=== PATIENT | female | born 1950 | race Caucasian/White ===

== ENCOUNTER 2022-07-03 06:22 | Observation (INO) | payer MEDICARE, OTHER, MEDICAID ==
[2022-07-03] MEDS ORDERED: methylPREDNISolone Sodium Succinate 125 MG/2 ML SDV IVPUSH ONE (06:56)
[2022-07-03] MEDS ORDERED: Ketorolac 30 MG/ML SDV IVPUSH ONE (08:25)
[2022-07-03 10:23] LABS: CARBON DIOXIDE,CO2 24.3 mmol/L (21.0-32.0); POTASSIUM,K 4.5 mmol/L (3.5-5.1)
[2022-07-03] MEDS ORDERED: Ondansetron 4 MG/2 ML SDV IVPUSH PRN (14:13)
[2022-07-03] MEDS ORDERED: Sodium Chloride 0.9% 2.5 ML Syringe FLUSH PRN (14:13)
[2022-07-03] MEDS ORDERED: Sodium Chloride 0.9% 10 ML Syringe FLUSH PRN (14:13)
[2022-07-03] MEDS ORDERED: Lactated Ringers 1,000 ML IV ONE (14:14)
[2022-07-03] MEDS ORDERED: diphenhydrAMINE 25 MG Cap PO PRN (14:15)
[2022-07-03] MEDS ORDERED: 50% Dextrose in Water 50 ML Syringe IVPUSH PRN ×2 (14:18→18:34)
[2022-07-03] MEDS ORDERED: Glucagon,Human Recombinant 1 MG Vial IM PRN ×2 (14:18→18:34)
[2022-07-03] MEDS ORDERED: diphenhydrAMINE 50 MG/ML SDV IVPUSH ONE (14:20)
[2022-07-03] MEDS ORDERED: Acetaminophen 325 MG Tab PO PRN (14:30)
[2022-07-03] MEDS: Loratadine 10 MG Tab PO SCH ×2 (14:59→20:15)
[2022-07-03] MEDS: methylPREDNISolone Sodium Succinate 40 MG/1 ML SDV IVPUSH SCH (15:00)
[2022-07-03] MEDS: Albuterol/Ipratropium 3.0-0.5 MG/3 ML Neb Soln NEB SCH ×2 (15:07→17:45)
[2022-07-03] MEDS ORDERED: EPINEPHrine 1 MG/ML SDV IM ONE (15:09)
[2022-07-03] MEDS ORDERED: EPINEPHrine 1 MG/1 ML Amp IM ONE (15:30)
[2022-07-03] MEDS ORDERED: Insulin Aspart 100 Units/ML 3 ML Pen SUBCUT ONE ×2 (18:34→22:45)
[2022-07-03] MEDS: Insulin Aspart 100 Units/ML 3 ML Pen SUBCUT SCH (18:45)
[2022-07-03] MEDS: Benzonatate 100 MG Cap PO PRN (20:16)
[2022-07-04] MEDS: Albuterol/Ipratropium 3.0-0.5 MG/3 ML Neb Soln NEB SCH ×3 (00:01→11:58)
[2022-07-04] MEDS: methylPREDNISolone Sodium Succinate 40 MG/1 ML SDV IVPUSH SCH (02:27)
[2022-07-04] MEDS: Benzonatate 100 MG Cap PO PRN ×2 (02:27→08:57)
[2022-07-04] MEDS ORDERED: Insulin Aspart 100 Units/ML 3 ML Pen SUBCUT ONE ×2 (02:30→22:45)
[2022-07-04 06:47] LABS: CARBON DIOXIDE,CO2 25.7 mmol/L (21.0-32.0); POTASSIUM,K 4.3 mmol/L (3.5-5.1)
[2022-07-04] MEDS: Insulin Aspart 100 Units/ML 3 ML Pen SUBCUT SCH ×2 (07:38→11:58)
[2022-07-04] MEDS: Loratadine 10 MG Tab PO SCH (08:56)
== END 2022-07-04 14:25 | disposition home or self-care (01) ==
LOC: MW.ED 06:22 → MW.MS 13:50
PROVIDERS: ADMIT Internal Medicine; ATTEND Internal Medicine
DX: T78.3XXA Angioneurotic edema, initial encounter (principal); E78.00 Pure hypercholesterolemia, unspecified; F17.210 Nicotine dependence, cigarettes, uncomplicated; E11.22 Type 2 diabetes mellitus with diabetic chronic kidney disease; I12.9 Hypertensive chronic kidney disease with stage 1 through stage 4 chronic kidney disease, or unspecified chronic kidney disease; N18.9 Chronic kidney disease, unspecified; J45.909 Unspecified asthma, uncomplicated; E86.0 Dehydration; E87.1 Hypo-osmolality and hyponatremia; Z88.8 Allergy status to other drugs, medicaments and biological substances; Z86.711 Personal history of pulmonary embolism; Z98.890 Other specified postprocedural states; Z79.4 Long term (current) use of insulin; Z20.822 Contact with and (suspected) exposure to COVID-19
CPT/HCPCS: 36415; 80048; 80053; 81001; 82436; 82570; 82947; 84133; 84300; 85025; 87086; 87088; 87186; 96372; 96374; 96375; 96376; 99285; A9270; G0378; J0171; J1200; J1815; J1885; J2920; J2930; J7120; U0002; J7620-GY

== ENCOUNTER 2022-11-03 15:14 | Observation (INO) | payer MEDICARE, OTHER, MEDICAID ==
[2022-11-03] MEDS ORDERED: Lactated Ringers 1,000 ML IV SCH (15:45)
[2022-11-03 15:59] LABS: CARBON DIOXIDE,CO2 23.9 mmol/L (21.0-32.0); POTASSIUM,K 5.1 mmol/L (3.5-5.1)
[2022-11-03 16:50] LABS: CORONAVIRUS COVID-19 NAA NEGATIVE (NEGATIVE); INFLUENZA A NAA NEGATIVE (NEGATIVE); INFLUENZA B NAA NEGATIVE (NEGATIVE); RESPIRATORY SYNCYTIAL VIR NAA NEGATIVE (NEGATIVE)
[2022-11-03] MEDS ORDERED: Glucagon,Human Recombinant 1 MG Vial IM PRN (17:36)
[2022-11-03] MEDS ORDERED: 50% Dextrose in Water 50 ML Syringe IVPUSH PRN (17:36)
[2022-11-03] MEDS ORDERED: Acetaminophen 325 MG Tab PO PRN (17:52)
[2022-11-03] MEDS ORDERED: Polyethylene Glycol 3350 Powder 17 GM Packet PO PRN (17:52)
[2022-11-03] MEDS ORDERED: Ondansetron 4 MG/2 ML SDV IVPUSH PRN (17:52)
[2022-11-03] MEDS ORDERED: Albuterol/Ipratropium 3.0-0.5 MG/3 ML Neb Soln NEB PRN (17:52)
[2022-11-03 18:17] LABS: HEMOGLOBIN A1C 7.8 %
[2022-11-03] MEDS: Albuterol/Ipratropium 3.0-0.5 MG/3 ML Neb Soln NEB ONE ×2 (18:33→18:34)
[2022-11-03] MEDS: Lactated Ringers 1,000 ML IV SCH (18:43)
[2022-11-03] MEDS ORDERED: diphenhydrAMINE 25 MG Cap PO PRN (19:01)
[2022-11-03] MEDS: methylPREDNISolone Sodium Succinate 40 MG/1 ML SDV IVPUSH SCH (19:53)
[2022-11-03] MEDS ORDERED: GABAPENTIN 400 MG PO SCH (21:00)
[2022-11-03] MEDS ORDERED: buPROPion 100 MG Tab PO SCH (21:00)
[2022-11-03] MEDS ORDERED: Gabapentin 300 MG Cap PO SCH ×2 (22:00)
[2022-11-03] MEDS: Gabapentin 800 MG Tab PO SCH (22:18)
[2022-11-03] MEDS: Albuterol/Ipratropium 3.0-0.5 MG/3 ML Neb Soln NEB SCH ×2 (22:21)
[2022-11-03] MEDS: cefTRIAXone 1 GM in Sodium Chloride 0.9% 50 ML IV SCH (22:22)
[2022-11-04] MEDS: Albuterol/Ipratropium 3.0-0.5 MG/3 ML Neb Soln NEB SCH ×5 (02:30→21:02)
[2022-11-04] MEDS: Lactated Ringers 1,000 ML IV SCH (02:49)
[2022-11-04] MEDS ORDERED: Albuterol/Ipratropium 3.0-0.5 MG/3 ML Neb Soln NEB ONE (06:00)
[2022-11-04] MEDS: methylPREDNISolone Sodium Succinate 40 MG/1 ML SDV IVPUSH SCH ×2 (06:32→17:34)
[2022-11-04 06:47] LABS: CARBON DIOXIDE,CO2 21.5 mmol/L (21.0-32.0); POTASSIUM,K 5.2 mmol/L (3.5-5.1)
[2022-11-04] MEDS: Insulin Aspart 100 Units/ML 3 ML Pen SUBCUT SCH ×3 (07:48→17:09)
[2022-11-04] MEDS: Gabapentin 300 MG Cap PO SCH ×3 (08:33→17:09)
[2022-11-04] MEDS: Escitalopram 10 MG Tab PO SCH (08:33)
[2022-11-04] MEDS: BUPROPION 100 MG PO SCH ×2 (08:37→20:57)
[2022-11-04] MEDS ORDERED: amLODIPine 5 MG Tab PO SCH (09:00)
[2022-11-04] MEDS ORDERED: Enoxaparin 40 MG/0.4 ML Syringe SUBCUT SCH (09:00)
[2022-11-04] MEDS ORDERED: Non-Formulary Medication 1 Each (Lisinopril 20 MG Tablet) PO SCH (09:00)
[2022-11-04] MEDS: Loratadine 10 MG Tab PO SCH (09:08)
[2022-11-04] MEDS: Fluticasone/Salmeterol 250-50 MCG Inhalation Powder 14/Diskus INH SCH ×2 (09:31→20:54)
[2022-11-04] MEDS: Multivitamin Tab PO SCH (09:33)
[2022-11-04] MEDS: tiZANidine 4 MG Tab PO SCH ×2 (09:33→20:55)
[2022-11-04] MEDS: BUPROPION 200 MG PO SCH ×2 (09:34→20:57)
[2022-11-04] MEDS: amLODIPine 5 MG Tab PO SCH (12:08)
[2022-11-04] MEDS ORDERED: diphenhydrAMINE 25 MG Cap PO PRN (15:34)
[2022-11-04] MEDS: Gabapentin 800 MG Tab PO SCH (20:55)
[2022-11-04] MEDS: cefTRIAXone 1 GM in Sodium Chloride 0.9% 50 ML IV SCH (20:57)
[2022-11-04] MEDS ORDERED: Montelukast 10 MG Tab PO SCH (21:00)
[2022-11-04] MEDS ORDERED: atorvaSTATin 40 MG Tab PO SCH (21:00)
[2022-11-05] MEDS: Albuterol/Ipratropium 3.0-0.5 MG/3 ML Neb Soln NEB SCH ×3 (02:32→11:18)
[2022-11-05 06:20] LABS: CARBON DIOXIDE,CO2 21.9 mmol/L (21.0-32.0); POTASSIUM,K 4.8 mmol/L (3.5-5.1)
[2022-11-05] MEDS: methylPREDNISolone Sodium Succinate 40 MG/1 ML SDV IVPUSH SCH (06:44)
[2022-11-05] MEDS: Insulin Aspart 100 Units/ML 3 ML Pen SUBCUT SCH ×2 (07:58→12:35)
[2022-11-05] MEDS: Multivitamin Tab PO SCH (08:18)
[2022-11-05] MEDS: Escitalopram 10 MG Tab PO SCH (08:18)
[2022-11-05] MEDS: tiZANidine 4 MG Tab PO SCH (08:18)
[2022-11-05] MEDS: Loratadine 10 MG Tab PO SCH (08:18)
[2022-11-05] MEDS: amLODIPine 5 MG Tab PO SCH (08:18)
[2022-11-05] MEDS: Gabapentin 300 MG Cap PO SCH (08:19)
[2022-11-05] MEDS ORDERED: tiZANidine 4 MG Tab PO PRN (08:43)
[2022-11-05] MEDS: Fluticasone/Salmeterol 250-50 MCG Inhalation Powder 14/Diskus INH SCH (09:41)
[2022-11-05] MEDS: BUPROPION 100 MG PO SCH (10:20)
[2022-11-05] MEDS: BUPROPION 200 MG PO SCH (10:20)
[2022-11-05] MEDS ORDERED: Insulin Aspart 100 Units/ML 3 ML Pen SUBCUT ONE (11:21)
[2022-11-05] MEDS ORDERED: Gabapentin 300 MG Cap PO SCH (21:00)
== END 2022-11-05 13:40 | disposition home or self-care (01) ==
LOC: MW.ED 15:14 → MW.MS 17:07 → UNDOADMOB 18:01
PROVIDERS: ADMIT Internal Medicine; ATTEND Internal Medicine
DX: J45.901 Unspecified asthma with (acute) exacerbation (principal); I12.9 Hypertensive chronic kidney disease with stage 1 through stage 4 chronic kidney disease, or unspecified chronic kidney disease; N18.9 Chronic kidney disease, unspecified; E11.22 Type 2 diabetes mellitus with diabetic chronic kidney disease; R42 Dizziness and giddiness; E78.00 Pure hypercholesterolemia, unspecified; F17.210 Nicotine dependence, cigarettes, uncomplicated; E11.40 Type 2 diabetes mellitus with diabetic neuropathy, unspecified; Z86.711 Personal history of pulmonary embolism; Z79.4 Long term (current) use of insulin; Z79.899 Other long term (current) drug therapy; Z88.8 Allergy status to other drugs, medicaments and biological substances; Z91.041 Radiographic dye allergy status; Z98.890 Other specified postprocedural states; Z20.822 Contact with and (suspected) exposure to COVID-19
CPT/HCPCS: 0241U; 36415; 70450; 70551; 71045; 80048; 80053; 80061; 81001; 82607; 82947; 83036; 83735; 84443; 85025; 87086; 93005; 93306; 94640; 96361; 96365; 96372; 96375; 96376; 97161; 97530; 99285; A9270; G0378; J0696; J1650; J1815; J2920; J7120; 93010; 96360; J7050; J7620-GY

== ENCOUNTER 2022-12-29 20:16 | Inpatient (IN) | payer MEDICARE, OTHER, MEDICAID ==
[2022-12-29] MEDS ORDERED: Sodium Chloride 0.9% 10 ML Syringe FLUSH PRN (20:45)
[2022-12-29] MEDS ORDERED: methylPREDNISolone Sodium Succinate 125 MG/2 ML SDV IVPUSH ONE (20:45)
[2022-12-29] MEDS ORDERED: Sodium Chloride 0.9% 2.5 ML Syringe FLUSH PRN (20:45)
[2022-12-29] MEDS ORDERED: cefTRIAXone 2 GM in Premix Bag 1 BAG IV ONE (20:45)
[2022-12-29] MEDS ORDERED: Albuterol 0.083% 2.5 MG/3 ML Neb Soln NEB ONE (20:47)
[2022-12-29 21:03] LABS: CORONAVIRUS COVID-19 NAA NEGATIVE (NEGATIVE); INFLUENZA A NAA NEGATIVE (NEGATIVE); INFLUENZA B NAA NEGATIVE (NEGATIVE); RESPIRATORY SYNCYTIAL VIR NAA NEGATIVE (NEGATIVE)
[2022-12-29] MEDS ORDERED: Nicotine 21 MG/24 Hr Patch TRDERM ONE (21:45)
[2022-12-29 22:12] LABS: CARBON DIOXIDE,CO2 28.2 mmol/L (21.0-32.0); POTASSIUM,K 3.4 mmol/L (3.5-5.1)
[2022-12-29] MEDS ORDERED: Azithromycin 250 MG Tab PO ONE (22:13)
[2022-12-29] MEDS ORDERED: 50% Dextrose in Water 50 ML Syringe IVPUSH PRN (23:56)
[2022-12-29] MEDS ORDERED: Glucagon,Human Recombinant 1 MG Vial IM PRN (23:56)
[2022-12-29] MEDS ORDERED: tiZANidine 4 MG Tab PO PRN (23:56)
[2022-12-30] MEDS ORDERED: Albuterol/Ipratropium 3.0-0.5 MG/3 ML Neb Soln NEB PRN (00:05)
[2022-12-30] MEDS ORDERED: Sodium Chloride 0.9% 1,000 ML IV ONE (01:00)
[2022-12-30] MEDS ORDERED: predniSONE 20 MG Tab PO SCH (08:00)
[2022-12-30] MEDS ORDERED: Insulin Aspart 100 Units/ML 3 ML Pen SUBCUT SCH ×2 (08:00→17:00)
[2022-12-30] MEDS: Lisinopril 10 MG Tab PO SCH (08:00)
[2022-12-30] MEDS: Gabapentin 300 MG Cap PO SCH ×2 (08:00→20:31)
[2022-12-30] MEDS: Multivitamin Tab PO SCH (08:01)
[2022-12-30] MEDS: Calcium Carbonate 500 MG Tablet PO SCH (08:01)
[2022-12-30] MEDS: amLODIPine 5 MG Tab PO SCH (08:01)
[2022-12-30] MEDS: Fluticasone/Salmeterol 250-50 MCG Inhalation Powder 14/Diskus INH SCH ×2 (08:01→20:33)
[2022-12-30] MEDS: BUPROPION 200 MG PO SCH ×2 (08:05→20:55)
[2022-12-30] MEDS ORDERED: glipiZIDE 5 MG Tab PO SCH (09:00)
[2022-12-30 09:34] LABS: CARBON DIOXIDE,CO2 23.9 mmol/L (21.0-32.0); POTASSIUM,K 4.4 mmol/L (3.5-5.1)
[2022-12-30] MEDS ORDERED: methylPREDNISolone Sodium Succinate 40 MG/1 ML SDV IVPUSH SCH (11:00)
[2022-12-30] MEDS ORDERED: Albuterol/Ipratropium 3.0-0.5 MG/3 ML Neb Soln ONE (11:19)
[2022-12-30] MEDS: Albuterol/Ipratropium 3.0-0.5 MG/3 ML Neb Soln NEB SCH ×3 (11:25→21:30)
[2022-12-30] MEDS ORDERED: 50% Dextrose in Water 50 ML Syringe IVPUSH PRN ×3 (11:34→16:49)
[2022-12-30] MEDS ORDERED: Glucagon,Human Recombinant 1 MG Vial IM PRN ×3 (11:34→16:49)
[2022-12-30] MEDS ORDERED: Insulin Aspart 100 Units/ML 3 ML Pen SUBCUT ONE (11:35)
[2022-12-30] MEDS ORDERED: Magnesium Sulfate/Water 4 GM in Premix Bag 1 BAG IV ONE (13:01)
[2022-12-30] MEDS: Loratadine 10 MG Tab PO SCH (13:35)
[2022-12-30] MEDS: methylPREDNISolone Sodium Succinate 125 MG/2 ML SDV IVPUSH SCH ×2 (13:36→20:32)
[2022-12-30] MEDS: Heparin Sodium 5,000 Units/ML Vial SUBCUT SCH (13:36)
[2022-12-30] MEDS: Insulin Aspart 100 Units/ML 3 ML Pen SUBCUT SCH ×2 (16:56)
[2022-12-30] MEDS: Nicotine 21 MG/24 Hr Patch TRDERM SCH (20:29)
[2022-12-30] MEDS: glipiZIDE 5 MG Tab PO SCH (20:30)
[2022-12-30] MEDS: Simvastatin 40 MG Tab PO SCH (20:30)
[2022-12-30] MEDS: Montelukast 10 MG Tab PO SCH (20:31)
[2022-12-30] MEDS: cefTRIAXone 1 GM in Sodium Chloride 0.9% 50 ML IV SCH (20:32)
[2022-12-30] MEDS: Insulin Glargine,Hum.Rec.Anlog 100 UNIT/ML 3 ML Pen SUBCUT SCH (20:33)
[2022-12-30] MEDS: Azithromycin 250 MG Tab PO SCH (21:30)
[2022-12-30] MEDS ORDERED: buPROPion 150 MG Tab.SR PO ONE (22:45)
[2022-12-31] MEDS: Heparin Sodium 5,000 Units/ML Vial SUBCUT SCH ×3 (01:39→23:55)
[2022-12-31] MEDS: methylPREDNISolone Sodium Succinate 125 MG/2 ML SDV IVPUSH SCH ×4 (01:39→20:31)
[2022-12-31] MEDS: diphenhydrAMINE 25 MG Cap PO PRN ×2 (01:41→23:56)
[2022-12-31 06:47] LABS: CARBON DIOXIDE,CO2 22.3 mmol/L (21.0-32.0); POTASSIUM,K 4.4 mmol/L (3.5-5.1)
[2022-12-31] MEDS: Albuterol/Ipratropium 3.0-0.5 MG/3 ML Neb Soln NEB SCH ×3 (06:54→22:43)
[2022-12-31] MEDS: Insulin Aspart 100 Units/ML 3 ML Pen SUBCUT SCH ×6 (07:58→17:10)
[2022-12-31] MEDS ORDERED: Sodium Chloride 0.9% 1,000 ML IV ONE (07:59)
[2022-12-31] MEDS: Lisinopril 10 MG Tab PO SCH (08:39)
[2022-12-31] MEDS: Loratadine 10 MG Tab PO SCH (08:40)
[2022-12-31] MEDS: Multivitamin Tab PO SCH (08:40)
[2022-12-31] MEDS: Calcium Carbonate 500 MG Tablet PO SCH (08:40)
[2022-12-31] MEDS: amLODIPine 5 MG Tab PO SCH (08:41)
[2022-12-31] MEDS: glipiZIDE 5 MG Tab PO SCH ×2 (08:41→20:32)
[2022-12-31] MEDS: Nicotine 21 MG/24 Hr Patch TRDERM SCH (08:42)
[2022-12-31] MEDS: Gabapentin 300 MG Cap PO SCH ×2 (08:42→20:31)
[2022-12-31] MEDS: Fluticasone/Salmeterol 250-50 MCG Inhalation Powder 14/Diskus INH SCH ×2 (08:43→20:35)
[2022-12-31] MEDS: BUPROPION 200 MG PO SCH (08:45)
[2022-12-31] MEDS: Acetaminophen 325 MG Tab PO PRN ×3 (09:22→23:56)
[2022-12-31] MEDS: guaiFENesin 600 MG Tab.ER PO SCH ×2 (10:23→20:33)
[2022-12-31] MEDS: Famotidine 20 MG Tab PO SCH (10:24)
[2022-12-31] MEDS: buPROPion 150 MG Tab.SR PO SCH (10:24)
[2022-12-31] MEDS: cefTRIAXone 1 GM in Sodium Chloride 0.9% 50 ML IV SCH (20:31)
[2022-12-31] MEDS: Simvastatin 40 MG Tab PO SCH (20:32)
[2022-12-31] MEDS: Montelukast 10 MG Tab PO SCH (20:32)
[2022-12-31] MEDS: Insulin Glargine,Hum.Rec.Anlog 100 UNIT/ML 3 ML Pen SUBCUT SCH (20:35)
[2022-12-31] MEDS: Azithromycin 250 MG Tab PO SCH (22:43)
[2023-01-01] MEDS: methylPREDNISolone Sodium Succinate 125 MG/2 ML SDV IVPUSH SCH ×3 (02:10→15:28)
[2023-01-01 06:47] LABS: CARBON DIOXIDE,CO2 22.6 mmol/L (21.0-32.0); POTASSIUM,K 4.1 mmol/L (3.5-5.1)
[2023-01-01] MEDS: Albuterol/Ipratropium 3.0-0.5 MG/3 ML Neb Soln NEB SCH ×3 (07:32→21:16)
[2023-01-01 08:09] LABS: BORDETELLA PARAPERT IS1001 Not Detected (Not Detected)
[2023-01-01] MEDS: Acetaminophen 325 MG Tab PO PRN (08:26)
[2023-01-01] MEDS: Insulin Aspart 100 Units/ML 3 ML Pen SUBCUT SCH ×6 (08:30→17:04)
[2023-01-01] MEDS: Fluticasone/Salmeterol 250-50 MCG Inhalation Powder 14/Diskus INH SCH ×2 (10:22→21:16)
[2023-01-01] MEDS: Nicotine 21 MG/24 Hr Patch TRDERM SCH (10:22)
[2023-01-01] MEDS: glipiZIDE 5 MG Tab PO SCH ×2 (10:25→21:14)
[2023-01-01] MEDS: guaiFENesin 600 MG Tab.ER PO SCH ×2 (10:25→21:15)
[2023-01-01] MEDS: buPROPion 150 MG Tab.SR PO SCH (10:26)
[2023-01-01] MEDS: Gabapentin 300 MG Cap PO SCH ×2 (10:27→21:15)
[2023-01-01] MEDS: Lisinopril 10 MG Tab PO SCH (10:28)
[2023-01-01] MEDS: Calcium Carbonate 500 MG Tablet PO SCH (10:29)
[2023-01-01] MEDS: amLODIPine 5 MG Tab PO SCH (10:31)
[2023-01-01] MEDS: Loratadine 10 MG Tab PO SCH (10:32)
[2023-01-01] MEDS: Famotidine 20 MG Tab PO SCH (10:33)
[2023-01-01] MEDS: Multivitamin Tab PO SCH (10:34)
[2023-01-01] MEDS: Heparin Sodium 5,000 Units/ML Vial SUBCUT SCH (12:08)
[2023-01-01] MEDS: Montelukast 10 MG Tab PO SCH (21:14)
[2023-01-01] MEDS: Insulin Glargine,Hum.Rec.Anlog 100 UNIT/ML 3 ML Pen SUBCUT SCH (21:15)
[2023-01-01] MEDS: cefTRIAXone 1 GM in Sodium Chloride 0.9% 50 ML IV SCH (21:15)
[2023-01-01] MEDS: Azithromycin 250 MG Tab PO SCH (21:15)
[2023-01-01] MEDS: Simvastatin 40 MG Tab PO SCH (21:15)
[2023-01-01] MEDS: diphenhydrAMINE 25 MG Cap PO PRN (21:15)
[2023-01-02] MEDS: methylPREDNISolone Sodium Succinate 125 MG/2 ML SDV IVPUSH SCH ×2 (01:15→13:15)
[2023-01-02] MEDS: Heparin Sodium 5,000 Units/ML Vial SUBCUT SCH ×2 (01:17→13:15)
[2023-01-02 07:15] LABS: CARBON DIOXIDE,CO2 25.3 mmol/L (21.0-32.0); POTASSIUM,K 4.9 mmol/L (3.5-5.1)
[2023-01-02] MEDS: Acetaminophen 325 MG Tab PO PRN ×3 (07:32→21:04)
[2023-01-02] MEDS: Albuterol/Ipratropium 3.0-0.5 MG/3 ML Neb Soln NEB SCH ×3 (07:32→21:06)
[2023-01-02] MEDS: Insulin Aspart 100 Units/ML 3 ML Pen SUBCUT SCH ×6 (07:33→16:38)
[2023-01-02] MEDS ORDERED: Albuterol/Ipratropium 3.0-0.5 MG/3 ML Neb Soln NEB PRN (08:25)
[2023-01-02] MEDS: buPROPion 150 MG Tab.SR PO SCH (08:29)
[2023-01-02] MEDS: Calcium Carbonate 500 MG Tablet PO SCH (08:29)
[2023-01-02] MEDS: Loratadine 10 MG Tab PO SCH (08:29)
[2023-01-02] MEDS: amLODIPine 5 MG Tab PO SCH (08:29)
[2023-01-02] MEDS: Multivitamin Tab PO SCH (08:29)
[2023-01-02] MEDS: Gabapentin 300 MG Cap PO SCH ×2 (08:29→21:07)
[2023-01-02] MEDS: Lisinopril 10 MG Tab PO SCH (08:29)
[2023-01-02] MEDS: Nicotine 21 MG/24 Hr Patch TRDERM SCH (08:30)
[2023-01-02] MEDS: Famotidine 20 MG Tab PO SCH (08:30)
[2023-01-02] MEDS: guaiFENesin 600 MG Tab.ER PO SCH ×2 (08:30→21:07)
[2023-01-02] MEDS: glipiZIDE 5 MG Tab PO SCH ×2 (08:30→21:05)
[2023-01-02] MEDS: Fluticasone/Salmeterol 250-50 MCG Inhalation Powder 14/Diskus INH SCH ×2 (08:31→21:10)
[2023-01-02] MEDS: Montelukast 10 MG Tab PO SCH (21:06)
[2023-01-02] MEDS: Simvastatin 40 MG Tab PO SCH (21:07)
[2023-01-02] MEDS: Azithromycin 250 MG Tab PO SCH (21:08)
[2023-01-02] MEDS: Insulin Glargine,Hum.Rec.Anlog 100 UNIT/ML 3 ML Pen SUBCUT SCH (21:09)
[2023-01-02] MEDS: cefTRIAXone 1 GM in Sodium Chloride 0.9% 50 ML IV SCH (21:09)
[2023-01-03] MEDS: methylPREDNISolone Sodium Succinate 125 MG/2 ML SDV IVPUSH SCH (01:33)
[2023-01-03] MEDS: Heparin Sodium 5,000 Units/ML Vial SUBCUT SCH ×2 (01:34→12:16)
[2023-01-03 06:24] LABS: CARBON DIOXIDE,CO2 23.7 mmol/L (21.0-32.0); POTASSIUM,K 4.8 mmol/L (3.5-5.1)
[2023-01-03] MEDS: Albuterol/Ipratropium 3.0-0.5 MG/3 ML Neb Soln NEB SCH (07:32)
[2023-01-03] MEDS ORDERED: cloNIDine 0.1 MG Tab PO PRN (07:37)
[2023-01-03] MEDS: Insulin Aspart 100 Units/ML 3 ML Pen SUBCUT SCH ×4 (08:50→12:16)
[2023-01-03] MEDS: amLODIPine 5 MG Tab PO SCH (08:52)
[2023-01-03] MEDS: Gabapentin 300 MG Cap PO SCH (08:52)
[2023-01-03] MEDS: Lisinopril 10 MG Tab PO SCH (08:52)
[2023-01-03] MEDS: glipiZIDE 5 MG Tab PO SCH (08:53)
[2023-01-03] MEDS: Loratadine 10 MG Tab PO SCH (08:53)
[2023-01-03] MEDS: guaiFENesin 600 MG Tab.ER PO SCH (08:53)
[2023-01-03] MEDS: Famotidine 20 MG Tab PO SCH (08:53)
[2023-01-03] MEDS: buPROPion 150 MG Tab.SR PO SCH (08:53)
[2023-01-03] MEDS: Multivitamin Tab PO SCH (08:53)
[2023-01-03] MEDS: Calcium Carbonate 500 MG Tablet PO SCH (08:53)
[2023-01-03] MEDS: Nicotine 21 MG/24 Hr Patch TRDERM SCH (08:54)
[2023-01-03] MEDS: Fluticasone/Salmeterol 250-50 MCG Inhalation Powder 14/Diskus INH SCH (09:33)
== END 2023-01-03 13:55 | disposition home or self-care (01) | DRG 193 ==
LOC: MW.ED 20:16 → INTOOBSV 22:14 → UNDOADMOB 22:14 → OBSVTOIN 22:14 → MW.MS 22:14 → OBSVTOIN 12-31 09:38 → MW.MS 12-31 09:38 → UNDODISIN 01-03 13:55
PROVIDERS: ADMIT Internal Medicine; ATTEND Internal Medicine
DX: J18.9 Pneumonia, unspecified organism (principal); J96.01 Acute respiratory failure with hypoxia; J44.0 Chronic obstructive pulmonary disease with (acute) lower respiratory infection; J44.1 Chronic obstructive pulmonary disease with (acute) exacerbation; J45.901 Unspecified asthma with (acute) exacerbation; Z68.41 Body mass index [BMI] 40.0-44.9, adult; E66.9 Obesity, unspecified; F32.89 Other specified depressive episodes; I12.9 Hypertensive chronic kidney disease with stage 1 through stage 4 chronic kidney disease, or unspecified chronic kidney disease; N18.2 Chronic kidney disease, stage 2 (mild); E11.22 Type 2 diabetes mellitus with diabetic chronic kidney disease; M19.90 Unspecified osteoarthritis, unspecified site; G47.30 Sleep apnea, unspecified; Z20.822 Contact with and (suspected) exposure to COVID-19; M54.9 Dorsalgia, unspecified; E11.65 Type 2 diabetes mellitus with hyperglycemia; E11.9 Type 2 diabetes mellitus without complications; G89.29 Other chronic pain; G43.909 Migraine, unspecified, not intractable, without status migrainosus; E11.42 Type 2 diabetes mellitus with diabetic polyneuropathy; F41.0 Panic disorder [episodic paroxysmal anxiety]; F17.210 Nicotine dependence, cigarettes, uncomplicated; F41.9 Anxiety disorder, unspecified; D63.1 Anemia in chronic kidney disease; E78.00 Pure hypercholesterolemia, unspecified; I10 Essential (primary) hypertension; Z79.51 Long term (current) use of inhaled steroids; Z98.890 Other specified postprocedural states; Z88.8 Allergy status to other drugs, medicaments and biological substances; Z91.041 Radiographic dye allergy status; Z86.711 Personal history of pulmonary embolism; Z79.4 Long term (current) use of insulin; Z79.899 Other long term (current) drug therapy; Z86.718 Personal history of other venous thrombosis and embolism
CPT/HCPCS: 0241U; 36415; 71045; 71045-26; 80048; 80053; 82947; 83605; 83735; 83880; 84100; 84484; 85025; 85027; 85610; 87040; 87486; 87581; 87633; 87798; 93005; 93010; 94640; 96361; 96365; 96366; 96367; 96372; 96375; 96376; 99285; 99285-25; A9270-GY; G0378; J0696; J1644; J1815-GY; J2930; J3475; J3490; J7030; J7050; J7620-GY

== ENCOUNTER 2023-07-21 15:30 | Observation (INO) | payer MEDICARE, OTHER, MEDICAID ==
[2023-07-21 16:29] LABS: BASOPHILS ABSOLUTE AUTO 0.1 K/uL (0.0-0.1); BASOPHILS PERCENT AUTO 0.5 % (0.0-1.5); EOSINOPHILS ABSOLUTE AUTO 0.3 K/uL (0.0-0.7); EOSINOPHILS PERCENT AUTO 2.7 % (0.0-7.0); HEMATOCRIT 38.4 % (36.0-46.0); HEMOGLOBIN 12.7 g/dL (12.0-16.0); LYMPHOCYTES ABSOLUTE AUTO 2.2 K/uL (0.6-2.4); LYMPHOCYTES PERCENT AUTO 22.7 % (16.0-40.0); MEAN CORPUSCULAR HEMOGLOBIN 30.5 pg (27.0-32.0); MEAN CORPUSCULAR HGB CONC 33.1 g/dL (31.0-37.0); MEAN CORPUSCULAR VOLUME 92.1 fL (80.0-98.0); MONOCYTES ABSOLUTE AUTO 0.9 K/uL (0.0-0.8); MONOCYTES PERCENT AUTO 9.2 % (0.0-15.0); NEUTROPHILS ABSOLUTE AUTO 6.2 K/uL (1.4-5.7); NEUTROPHILS PERCENT AUTO 64.9 % (48.0-80.0); NRBC ABSOLUTE 0 K/uL; PLATELET COUNT,PLT 386 K/uL (150-400); RED BLOOD CELL COUNT 4.17 M/uL (4.30-5.90); WHITE BLOOD CELL COUNT,WBC 9.49 K/uL (4.0-11.0)
[2023-07-21 16:40] LABS: INR 0.94 (0.86-1.11)
[2023-07-21 16:59] LABS: A/G RATIO 0.9 (0.9-1.6); ALBUMIN 2.9 g/dL (3.4-5.0); BILIRUBIN TOTAL 0.2 mg/dL (0.2-1.0); CALCIUM 8.3 mg/dL (8.5-10.1); CARBON DIOXIDE,CO2 24.4 mmol/L (21.0-32.0); CREATININE 1.9 mg/dL (0.6-1.0); EST CRCL DRUG DOSING (CG) 19.22 mL/min; POTASSIUM,K 4.5 mmol/L (3.5-5.1); PROTEIN TOTAL,TP 6.1 g/dL (6.4-8.2)
[2023-07-21 17:18] LABS: MAGNESIUM 2.1 mg/dL (1.8-2.4)
[2023-07-21 17:27] LABS: APPEARANCE,URINE CLEAR; BILIRUBIN,URINE NEGATIVE (NEGATIVE); COLOR,URINE YELLOW; GLUCOSE,URINE NEGATIVE (NEGATIVE); KETONES,URINE NEGATIVE (NEGATIVE); LEUKOCYTE ESTERASE,URINE TRACE (NEGATIVE); NITRITE,URINE NEGATIVE (NEGATIVE); OCCULT BLOOD,URINE NEGATIVE (NEGATIVE); PROTEIN,URINE 100 mg/dL (NEGATIVE); UROBILINOGEN,URINE 0.2 EU/dL (<2.0)
[2023-07-21 17:39] LABS: BACTERIA,URINE MODERATE (NEGATIVE); EPITHELIAL CELLS,URINE MANY (NONE-FEW); RBC,URINE 0-1 (0-2/HPF)
[2023-07-21] MEDS ORDERED: cefTRIAXone 1 GM in Sodium Chloride 0.9% 50 ML IV ONE (18:48)
[2023-07-21] MEDS ORDERED: Glucagon,Human Recombinant 1 MG Vial IM PRN (21:24)
[2023-07-21] MEDS ORDERED: 50% Dextrose in Water 50 ML Syringe IVPUSH PRN (21:24)
[2023-07-22] MEDS: diphenhydrAMINE 25 MG Cap PO PRN ×3 (02:14→21:42)
[2023-07-22] MEDS ORDERED: Acetaminophen 325 MG Tab PO PRN (07:52)
[2023-07-22] MEDS ORDERED: Sodium Chloride 0.9% 2.5 ML Syringe FLUSH PRN (07:52)
[2023-07-22] MEDS ORDERED: Ondansetron 4 MG/2 ML SDV IVPUSH PRN (07:52)
[2023-07-22] MEDS ORDERED: Sodium Chloride 0.9% 10 ML Syringe FLUSH PRN (07:52)
[2023-07-22] MEDS ORDERED: Albuterol/Ipratropium 3.0-0.5 MG/3 ML Neb Soln NEB PRN (07:52)
[2023-07-22] MEDS: Insulin Aspart 100 Units/ML 3 ML Pen SUBCUT SCH ×3 (08:09→17:23)
[2023-07-22 08:21] LABS: BASOPHILS ABSOLUTE AUTO 0.1 K/uL (0.0-0.1); BASOPHILS PERCENT AUTO 0.5 % (0.0-1.5); EOSINOPHILS ABSOLUTE AUTO 0.3 K/uL (0.0-0.7); EOSINOPHILS PERCENT AUTO 2.7 % (0.0-7.0); HEMATOCRIT 39.6 % (36.0-46.0); HEMOGLOBIN 13.3 g/dL (12.0-16.0); LYMPHOCYTES ABSOLUTE AUTO 2.8 K/uL (0.6-2.4); LYMPHOCYTES PERCENT AUTO 29.6 % (16.0-40.0); MEAN CORPUSCULAR HEMOGLOBIN 30.8 pg (27.0-32.0); MEAN CORPUSCULAR HGB CONC 33.6 g/dL (31.0-37.0); MEAN CORPUSCULAR VOLUME 91.7 fL (80.0-98.0); MONOCYTES ABSOLUTE AUTO 0.9 K/uL (0.0-0.8); MONOCYTES PERCENT AUTO 8.9 % (0.0-15.0); NEUTROPHILS ABSOLUTE AUTO 5.6 K/uL (1.4-5.7); NEUTROPHILS PERCENT AUTO 58.3 % (48.0-80.0); NRBC ABSOLUTE 0 K/uL; PLATELET COUNT,PLT 377 K/uL (150-400); RED BLOOD CELL COUNT 4.32 M/uL (4.30-5.90); WHITE BLOOD CELL COUNT,WBC 9.57 K/uL (4.0-11.0)
[2023-07-22 08:38] LABS: CALCIUM 8.7 mg/dL (8.5-10.1); CARBON DIOXIDE,CO2 27.1 mmol/L (21.0-32.0); CREATININE 1.7 mg/dL (0.6-1.0); EST CRCL DRUG DOSING (CG) 21.49 mL/min; POTASSIUM,K 4.3 mmol/L (3.5-5.1)
[2023-07-22] MEDS ORDERED: BUPROPION HCL 200 MG PO SCH (09:00)
[2023-07-22] MEDS: Famotidine 20 MG Tab PO SCH (10:30)
[2023-07-22] MEDS: Multivitamins with Iron/Calcium/Folic Acid/Minerals Tab PO SCH (10:30)
[2023-07-22] MEDS: Escitalopram 10 MG Tab PO SCH (10:31)
[2023-07-22] MEDS: buPROPion 150 MG Tab.SR PO SCH ×2 (10:32→20:26)
[2023-07-22] MEDS: Metoclopramide 5 MG Tab PO SCH ×3 (10:34→17:16)
[2023-07-22] MEDS: Formoterol/Mometasone 200-5 MCG 8.8 GM Inhaler INH SCH ×2 (10:34→20:27)
[2023-07-22] MEDS: Nicotine 21 MG/24 Hr Patch TRDERM SCH (12:04)
[2023-07-22] MEDS: Sodium Chloride 0.9% 1,000 ML IV SCH ×2 (12:49→23:14)
[2023-07-22] MEDS ORDERED: cefTRIAXone 1 GM in Sodium Chloride 0.9% 50 ML IV SCH (16:00)
[2023-07-22] MEDS ORDERED: Montelukast 10 MG Tab PO SCH (21:00)
[2023-07-22] MEDS ORDERED: Simvastatin 10 MG Tab PO SCH (21:00)
[2023-07-23 05:47] LABS: BASOPHILS ABSOLUTE AUTO 0.1 K/uL (0.0-0.1); BASOPHILS PERCENT AUTO 0.7 % (0.0-1.5); EOSINOPHILS ABSOLUTE AUTO 0.3 K/uL (0.0-0.7); EOSINOPHILS PERCENT AUTO 2.9 % (0.0-7.0); HEMATOCRIT 38.1 % (36.0-46.0); HEMOGLOBIN 12.8 g/dL (12.0-16.0); LYMPHOCYTES ABSOLUTE AUTO 1.9 K/uL (0.6-2.4); LYMPHOCYTES PERCENT AUTO 22.5 % (16.0-40.0); MEAN CORPUSCULAR HEMOGLOBIN 30.5 pg (27.0-32.0); MEAN CORPUSCULAR HGB CONC 33.6 g/dL (31.0-37.0); MEAN CORPUSCULAR VOLUME 90.7 fL (80.0-98.0); MONOCYTES ABSOLUTE AUTO 0.9 K/uL (0.0-0.8); NEUTROPHILS ABSOLUTE AUTO 5.5 K/uL (1.4-5.7); NEUTROPHILS PERCENT AUTO 63.9 % (48.0-80.0); NRBC ABSOLUTE 0 K/uL; PLATELET COUNT,PLT 377 K/uL (150-400); WHITE BLOOD CELL COUNT,WBC 8.54 K/uL (4.0-11.0)
[2023-07-23 06:05] LABS: CALCIUM 8.2 mg/dL (8.5-10.1); CARBON DIOXIDE,CO2 25.2 mmol/L (21.0-32.0); CREATININE 1.6 mg/dL (0.6-1.0); EST CRCL DRUG DOSING (CG) 22.83 mL/min
[2023-07-23] MEDS: Metoclopramide 5 MG Tab PO SCH ×2 (06:05→06:39)
[2023-07-23] MEDS: Insulin Aspart 100 Units/ML 3 ML Pen SUBCUT SCH (07:53)
[2023-07-23] MEDS: Multivitamins with Iron/Calcium/Folic Acid/Minerals Tab PO SCH (08:44)
[2023-07-23] MEDS: Famotidine 20 MG Tab PO SCH (08:45)
[2023-07-23] MEDS: buPROPion 150 MG Tab.SR PO SCH (08:45)
[2023-07-23] MEDS: Escitalopram 10 MG Tab PO SCH (08:45)
[2023-07-23] MEDS: Nicotine 21 MG/24 Hr Patch TRDERM SCH (08:46)
[2023-07-23] MEDS: Formoterol/Mometasone 200-5 MCG 8.8 GM Inhaler INH SCH (10:17)
[2023-07-23] MEDS ORDERED: Metoclopramide 5 MG Tab PO SCH (17:00)
== END 2023-07-23 11:33 | disposition home or self-care (01) ==
LOC: MW.ED 15:30 → MW.MS 18:35
PROVIDERS: ADMIT Internal Medicine; ATTEND Internal Medicine
DX: I95.1 Orthostatic hypotension (principal); G93.41 Metabolic encephalopathy; E11.649 Type 2 diabetes mellitus with hypoglycemia without coma; N30.00 Acute cystitis without hematuria; N17.9 Acute kidney failure, unspecified; I12.9 Hypertensive chronic kidney disease with stage 1 through stage 4 chronic kidney disease, or unspecified chronic kidney disease; E11.22 Type 2 diabetes mellitus with diabetic chronic kidney disease; N18.2 Chronic kidney disease, stage 2 (mild); E11.43 Type 2 diabetes mellitus with diabetic autonomic (poly)neuropathy; K31.84 Gastroparesis; J44.9 Chronic obstructive pulmonary disease, unspecified; G47.30 Sleep apnea, unspecified; E11.42 Type 2 diabetes mellitus with diabetic polyneuropathy; F41.0 Panic disorder [episodic paroxysmal anxiety]; F32.A Depression, unspecified; E78.5 Hyperlipidemia, unspecified; F17.210 Nicotine dependence, cigarettes, uncomplicated; Z86.711 Personal history of pulmonary embolism; Z79.2 Long term (current) use of antibiotics; Z88.8 Allergy status to other drugs, medicaments and biological substances; Z79.899 Other long term (current) drug therapy; Z79.84 Long term (current) use of oral hypoglycemic drugs; Z79.85 Long-term (current) use of injectable non-insulin antidiabetic drugs; W19.XXXA Unspecified fall, initial encounter
CPT/HCPCS: 36415; 70450; 71045; 72125; 80048; 80053; 81001; 82947; 83735; 84484; 85025; 85610; 87086; 93005; 96361; 96365; 96366; 97162; 99285; A9270; G0378; J0696; J1815; J3490; J7030; 93010; 99282

== ENCOUNTER 2023-09-08 11:45 | Inpatient (IN) | payer MEDICARE, OTHER, MEDICAID ==
[2023-09-08] MEDS ORDERED: Sodium Chloride 0.9% 2.5 ML Syringe FLUSH PRN (11:48)
[2023-09-08] MEDS ORDERED: Sodium Chloride 0.9% 10 ML Syringe FLUSH PRN (11:48)
[2023-09-08] MEDS ORDERED: Ondansetron 4 MG/2 ML SDV IVPUSH ONE (12:00)
[2023-09-08] MEDS ORDERED: Sodium Chloride 0.9% 1,000 ML IV ONE ×2 (12:06→12:15)
[2023-09-08 12:15] LABS: BASE EXCESS VENOUS -0.9 (-2.0-3.0); PH,VENOUS 7.49 (7.31-7.41)
[2023-09-08 12:48] LABS: ALBUMIN 4.3 g/dL (3.4-5.0); BILIRUBIN TOTAL 0.4 mg/dL (0.2-1.0); CALCIUM 10.2 mg/dL (8.5-10.1); CREATININE 1.6 mg/dL (0.6-1.0); EST CRCL DRUG DOSING (CG) 22.83 mL/min; POTASSIUM,K 3.7 mmol/L (3.5-5.1); PROTEIN TOTAL,TP 8.4 g/dL (6.4-8.2)
[2023-09-08 12:49] LABS: A/G RATIO 1.1 (0.9-1.6)
[2023-09-08 13:23] LABS: CORONAVIRUS COVID-19 NAA NEGATIVE (NEGATIVE); INFLUENZA A NAA NEGATIVE (NEGATIVE); INFLUENZA B NAA NEGATIVE (NEGATIVE)
[2023-09-08 13:34] LABS: BASOPHILS ABSOLUTE AUTO 0.07 K/uL (0.00-0.20); BASOPHILS PERCENT AUTO 0.5 % (0.0-1.0); EOSINOPHILS ABSOLUTE AUTO 0.01 K/uL (0.00-0.45); EOSINOPHILS PERCENT AUTO 0.1 % (0.0-6.0); HEMATOCRIT 47.3 % (37.0-47.0); HEMOGLOBIN 16.7 g/dL (12.0-16.0); IMMATURE GRAN ABSOLUTE AUTO 0.07 K/uL (0.00-0.05); IMMATURE GRAN PERCENT AUTO 0.5 % (0.0-0.4); LYMPHOCYTES ABSOLUTE AUTO 0.73 K/uL (1.00-4.80); LYMPHOCYTES PERCENT AUTO 5.6 % (24.0-44.0); MEAN CORPUSCULAR HEMOGLOBIN 31.3 pg (28.0-32.0); MEAN CORPUSCULAR HGB CONC 35.3 g/dL (32.0-36.0); MEAN CORPUSCULAR VOLUME 88.6 fL (83.0-99.0); MEAN PLATELET VOLUME 8.4 fL (9.4-12.3); MONOCYTES ABSOLUTE AUTO 0.38 K/uL (0.00-0.80); MONOCYTES PERCENT AUTO 2.9 % (0.0-8.0); NEUTROPHILS ABSOLUTE AUTO 11.69 K/uL (1.80-7.70); NEUTROPHILS PERCENT AUTO 90.4 % (41.0-71.0); PLATELET COUNT,PLT 333 K/uL (150-400); RED BLOOD CELL COUNT 5.34 M/uL (4.10-5.30); WHITE BLOOD CELL COUNT,WBC 12.95 K/uL (3.9-11.3)
[2023-09-08] MEDS ORDERED: Morphine 4 MG/ML Syringe IVPUSH ONE (13:47)
[2023-09-08] MEDS ORDERED: HYDROmorphone 1 MG/ML Syringe IVPUSH ONE (16:33)
[2023-09-08] MEDS ORDERED: Alum Hydro/Mag Hydro/Simeth XS 15 ML, Lidocaine 2% 5 ML PO ONE ×2 (16:34)
[2023-09-08] MEDS ORDERED: 50% Dextrose in Water 50 ML Syringe IVPUSH PRN ×2 (17:07→17:49)
[2023-09-08] MEDS ORDERED: Insulin Regular, Human 100 Units/ML 10 ML Vial IVPUSH ONE (17:07)
[2023-09-08] MEDS ORDERED: Glucagon,Human Recombinant 1 MG Vial IM PRN ×2 (17:07→17:49)
[2023-09-08 17:10] LABS: APPEARANCE,URINE CLEAR; BILIRUBIN,URINE NEGATIVE (NEGATIVE); COLOR,URINE YELLOW; GLUCOSE,URINE >=1000 mg/dL (NEGATIVE); KETONES,URINE 15 mg/dL (NEGATIVE); LEUKOCYTE ESTERASE,URINE NEGATIVE (NEGATIVE); NITRITE,URINE NEGATIVE (NEGATIVE); OCCULT BLOOD,URINE SMALL (NEGATIVE); PROTEIN,URINE >=300 mg/dL (NEGATIVE); UROBILINOGEN,URINE 0.2 EU/dL (<2.0)
[2023-09-08 17:21] LABS: BACTERIA,URINE NOT SEEN (NEGATIVE); EPITHELIAL CELLS,URINE NOT SEEN (NONE-FEW); RBC,URINE 0-3 (0-2/HPF); WBC,URINE 0-2 (0-5/HPF)
[2023-09-08] MEDS ORDERED: Naloxone 0.4 MG/ML SDV IVPUSH PRN (17:49)
[2023-09-08] MEDS ORDERED: Ondansetron 4 MG/2 ML SDV IVPUSH PRN (18:11)
[2023-09-08] MEDS: Simvastatin 10 MG Tab PO SCH (20:15)
[2023-09-08] MEDS: Lactated Ringers 1,000 ML IV SCH (20:15)
[2023-09-08] MEDS: Enoxaparin 40 MG/0.4 ML Syringe SUBCUT SCH (20:16)
[2023-09-09] MEDS: Lactated Ringers 1,000 ML IV SCH ×2 (05:40→16:00)
[2023-09-09 06:44] LABS: BASOPHILS ABSOLUTE AUTO 0.05 K/uL (0.00-0.20); BASOPHILS PERCENT AUTO 0.4 % (0.0-1.0); EOSINOPHILS ABSOLUTE AUTO 0.02 K/uL (0.00-0.45); EOSINOPHILS PERCENT AUTO 0.2 % (0.0-6.0); HEMATOCRIT 40.6 % (37.0-47.0); HEMOGLOBIN 13.9 g/dL (12.0-16.0); IMMATURE GRAN ABSOLUTE AUTO 0.05 K/uL (0.00-0.05); IMMATURE GRAN PERCENT AUTO 0.4 % (0.0-0.4); LYMPHOCYTES ABSOLUTE AUTO 1.96 K/uL (1.00-4.80); LYMPHOCYTES PERCENT AUTO 15.3 % (24.0-44.0); MEAN CORPUSCULAR HEMOGLOBIN 30.1 pg (28.0-32.0); MEAN CORPUSCULAR HGB CONC 34.2 g/dL (32.0-36.0); MEAN CORPUSCULAR VOLUME 87.9 fL (83.0-99.0); MEAN PLATELET VOLUME 8.4 fL (9.4-12.3); MONOCYTES ABSOLUTE AUTO 1.08 K/uL (0.00-0.80); MONOCYTES PERCENT AUTO 8.4 % (0.0-8.0); NEUTROPHILS ABSOLUTE AUTO 9.68 K/uL (1.80-7.70); NEUTROPHILS PERCENT AUTO 75.3 % (41.0-71.0); PLATELET COUNT,PLT 321 K/uL (150-400); RED BLOOD CELL COUNT 4.62 M/uL (4.10-5.30); WHITE BLOOD CELL COUNT,WBC 12.84 K/uL (3.9-11.3)
[2023-09-09 07:11] LABS: A/G RATIO 0.9 (0.9-1.6); BILIRUBIN TOTAL 0.3 mg/dL (0.2-1.0); CALCIUM 8.8 mg/dL (8.5-10.1); CARBON DIOXIDE,CO2 23.9 mmol/L (21.0-32.0); CREATININE 1.5 mg/dL (0.6-1.0); EST CRCL DRUG DOSING (CG) 24.35 mL/min; POTASSIUM,K 3.5 mmol/L (3.5-5.1); PROTEIN TOTAL,TP 6.4 g/dL (6.4-8.2)
[2023-09-09] MEDS: Insulin Aspart 100 Units/ML 3 ML Pen SUBCUT SCH ×3 (07:48→17:01)
[2023-09-09] MEDS: Morphine 2 MG/ML SYRINGE IVPUSH PRN ×2 (09:52→19:02)
[2023-09-09] MEDS: Metoclopramide 5 MG Tab PO SCH (09:55)
[2023-09-09] MEDS: amLODIPine 5 MG Tab PO SCH (09:58)
[2023-09-09] MEDS: Escitalopram 10 MG Tab PO SCH (09:58)
[2023-09-09] MEDS: Lisinopril 10 MG Tab PO SCH (09:59)
[2023-09-09 10:26] LABS: HEMOGLOBIN A1C 7.5 %
[2023-09-09] MEDS ORDERED: Labetalol 100 MG/20 ML MDV IVPUSH ONE (12:17)
[2023-09-09] MEDS ORDERED: HYDROmorphone 1 MG/ML Syringe IVPUSH ONE (12:45)
[2023-09-09] MEDS ORDERED: Metoclopramide 10 MG/2 ML SDV IVPUSH PRN (15:56)
[2023-09-09] MEDS: BUPROPION HCL 200 MG PO SCH ×2 (16:02→20:51)
[2023-09-09] MEDS: Enoxaparin 40 MG/0.4 ML Syringe SUBCUT SCH (20:51)
[2023-09-09] MEDS ORDERED: Insulin Glargine,Hum.Rec.Anlog 100 UNIT/ML 3 ML Pen SUBCUT SCH (21:00)
[2023-09-09] MEDS: Simvastatin 10 MG Tab PO SCH (23:11)
[2023-09-09] MEDS: Acetaminophen 325 MG Tab PO PRN (23:37)
[2023-09-10] MEDS: traMADol 50 MG Tab PO PRN ×3 (01:56→22:15)
[2023-09-10 06:20] LABS: BASOPHILS ABSOLUTE AUTO 0.03 K/uL (0.00-0.20); BASOPHILS PERCENT AUTO 0.3 % (0.0-1.0); EOSINOPHILS ABSOLUTE AUTO 0.01 K/uL (0.00-0.45); EOSINOPHILS PERCENT AUTO 0.1 % (0.0-6.0); HEMOGLOBIN 15.6 g/dL (12.0-16.0); IMMATURE GRAN ABSOLUTE AUTO 0.07 K/uL (0.00-0.05); IMMATURE GRAN PERCENT AUTO 0.6 % (0.0-0.4); LYMPHOCYTES PERCENT AUTO 16.8 % (24.0-44.0); MEAN CORPUSCULAR HGB CONC 35.5 g/dL (32.0-36.0); MEAN CORPUSCULAR VOLUME 87.3 fL (83.0-99.0); MEAN PLATELET VOLUME 8.3 fL (9.4-12.3); MONOCYTES PERCENT AUTO 5.3 % (0.0-8.0); NEUTROPHILS ABSOLUTE AUTO 8.71 K/uL (1.80-7.70); NEUTROPHILS PERCENT AUTO 76.9 % (41.0-71.0); PLATELET COUNT,PLT 340 K/uL (150-400); RED BLOOD CELL COUNT 5.04 M/uL (4.10-5.30); WHITE BLOOD CELL COUNT,WBC 11.32 K/uL (3.9-11.3)
[2023-09-10] MEDS: Acetaminophen 325 MG Tab PO PRN (06:22)
[2023-09-10 06:53] LABS: A/G RATIO 0.9 (0.9-1.6); ALBUMIN 3.3 g/dL (3.4-5.0); BILIRUBIN TOTAL 0.3 mg/dL (0.2-1.0); CALCIUM 9.1 mg/dL (8.5-10.1); CARBON DIOXIDE,CO2 24.1 mmol/L (21.0-32.0); CREATININE 1.5 mg/dL (0.6-1.0); EST CRCL DRUG DOSING (CG) 24.35 mL/min; POTASSIUM,K 3.3 mmol/L (3.5-5.1)
[2023-09-10] MEDS ORDERED: Potassium Chloride 20 MEQ Tab.ER PO ONE (07:17)
[2023-09-10] MEDS: Lactated Ringers 1,000 ML IV SCH ×2 (07:25→19:58)
[2023-09-10] MEDS: Escitalopram 10 MG Tab PO SCH (08:19)
[2023-09-10] MEDS: Lisinopril 10 MG Tab PO SCH (08:19)
[2023-09-10] MEDS: amLODIPine 5 MG Tab PO SCH (08:20)
[2023-09-10] MEDS: Insulin Aspart 100 Units/ML 3 ML Pen SUBCUT SCH ×3 (08:21→16:46)
[2023-09-10] MEDS: Metoclopramide 5 MG Tab PO SCH (08:23)
[2023-09-10] MEDS: BUPROPION HCL 200 MG PO SCH ×2 (08:24→20:09)
[2023-09-10] MEDS: Pantoprazole 40 MG in Sodium Chloride 0.9% 10 ML IVPUSH SCH (11:56)
[2023-09-10] MEDS: Enoxaparin 40 MG/0.4 ML Syringe SUBCUT SCH (20:08)
[2023-09-10] MEDS: Insulin Glargine,Hum.Rec.Anlog 100 UNIT/ML 3 ML Pen SUBCUT SCH (20:11)
[2023-09-10] MEDS: Simvastatin 10 MG Tab PO SCH (20:12)
[2023-09-10] MEDS: Melatonin 3 MG Tab PO PRN (22:16)
[2023-09-11] MEDS: traMADol 50 MG Tab PO PRN ×4 (05:05→23:52)
[2023-09-11 06:18] LABS: BASOPHILS ABSOLUTE AUTO 0.05 K/uL (0.00-0.20); BASOPHILS PERCENT AUTO 0.6 % (0.0-1.0); EOSINOPHILS ABSOLUTE AUTO 0.02 K/uL (0.00-0.45); EOSINOPHILS PERCENT AUTO 0.2 % (0.0-6.0); HEMATOCRIT 43.2 % (37.0-47.0); HEMOGLOBIN 15.5 g/dL (12.0-16.0); IMMATURE GRAN ABSOLUTE AUTO 0.03 K/uL (0.00-0.05); IMMATURE GRAN PERCENT AUTO 0.3 % (0.0-0.4); LYMPHOCYTES ABSOLUTE AUTO 2.05 K/uL (1.00-4.80); LYMPHOCYTES PERCENT AUTO 23.8 % (24.0-44.0); MEAN CORPUSCULAR HEMOGLOBIN 31.1 pg (28.0-32.0); MEAN CORPUSCULAR HGB CONC 35.9 g/dL (32.0-36.0); MEAN CORPUSCULAR VOLUME 86.6 fL (83.0-99.0); MEAN PLATELET VOLUME 8.2 fL (9.4-12.3); MONOCYTES ABSOLUTE AUTO 0.88 K/uL (0.00-0.80); MONOCYTES PERCENT AUTO 10.2 % (0.0-8.0); NEUTROPHILS ABSOLUTE AUTO 5.58 K/uL (1.80-7.70); NEUTROPHILS PERCENT AUTO 64.9 % (41.0-71.0); PLATELET COUNT,PLT 289 K/uL (150-400); RED BLOOD CELL COUNT 4.99 M/uL (4.10-5.30); WHITE BLOOD CELL COUNT,WBC 8.61 K/uL (3.9-11.3)
[2023-09-11 06:32] LABS: A/G RATIO 0.9 (0.9-1.6); ALBUMIN 3.2 g/dL (3.4-5.0); BILIRUBIN TOTAL 0.5 mg/dL (0.2-1.0); CALCIUM 8.9 mg/dL (8.5-10.1); CARBON DIOXIDE,CO2 25.7 mmol/L (21.0-32.0); CREATININE 1.2 mg/dL (0.6-1.0); EST CRCL DRUG DOSING (CG) 30.44 mL/min; POTASSIUM,K 3.2 mmol/L (3.5-5.1); PROTEIN TOTAL,TP 6.6 g/dL (6.4-8.2)
[2023-09-11] MEDS: Insulin Aspart 100 Units/ML 3 ML Pen SUBCUT SCH ×3 (08:08→16:40)
[2023-09-11] MEDS: Lisinopril 10 MG Tab PO SCH (08:09)
[2023-09-11] MEDS: Escitalopram 10 MG Tab PO SCH (08:11)
[2023-09-11] MEDS: amLODIPine 5 MG Tab PO SCH (08:12)
[2023-09-11] MEDS: BUPROPION HCL 200 MG PO SCH ×2 (08:12→20:10)
[2023-09-11] MEDS: Acetaminophen 325 MG Tab PO PRN (08:13)
[2023-09-11] MEDS: Lactated Ringers 1,000 ML IV SCH (09:51)
[2023-09-11] MEDS: Pantoprazole 40 MG in Sodium Chloride 0.9% 10 ML IVPUSH SCH (11:32)
[2023-09-11] MEDS ORDERED: NS with KCl 40mEq 1,000 ML IV SCH (12:15)
[2023-09-11] MEDS: Enoxaparin 40 MG/0.4 ML Syringe SUBCUT SCH (20:09)
[2023-09-11] MEDS: Simvastatin 10 MG Tab PO SCH (20:10)
[2023-09-11] MEDS: Insulin Glargine,Hum.Rec.Anlog 100 UNIT/ML 3 ML Pen SUBCUT SCH (20:11)
[2023-09-11] MEDS: Melatonin 3 MG Tab PO PRN (21:50)
[2023-09-12] MEDS: Lactated Ringers 1,000 ML IV SCH ×2 (03:57→19:08)
[2023-09-12 06:18] LABS: BASOPHILS ABSOLUTE AUTO 0.06 K/uL (0.00-0.20); BASOPHILS PERCENT AUTO 0.6 % (0.0-1.0); EOSINOPHILS ABSOLUTE AUTO 0.05 K/uL (0.00-0.45); EOSINOPHILS PERCENT AUTO 0.5 % (0.0-6.0); HEMATOCRIT 43.2 % (37.0-47.0); HEMOGLOBIN 15.4 g/dL (12.0-16.0); IMMATURE GRAN ABSOLUTE AUTO 0.03 K/uL (0.00-0.05); IMMATURE GRAN PERCENT AUTO 0.3 % (0.0-0.4); LYMPHOCYTES ABSOLUTE AUTO 2.05 K/uL (1.00-4.80); LYMPHOCYTES PERCENT AUTO 21.6 % (24.0-44.0); MEAN CORPUSCULAR HEMOGLOBIN 30.6 pg (28.0-32.0); MEAN CORPUSCULAR HGB CONC 35.6 g/dL (32.0-36.0); MEAN CORPUSCULAR VOLUME 85.9 fL (83.0-99.0); MONOCYTES ABSOLUTE AUTO 0.82 K/uL (0.00-0.80); MONOCYTES PERCENT AUTO 8.6 % (0.0-8.0); NEUTROPHILS PERCENT AUTO 68.4 % (41.0-71.0); PLATELET COUNT,PLT 295 K/uL (150-400); RED BLOOD CELL COUNT 5.03 M/uL (4.10-5.30); WHITE BLOOD CELL COUNT,WBC 9.51 K/uL (3.9-11.3)
[2023-09-12 06:45] LABS: ALBUMIN 3.2 g/dL (3.4-5.0); BILIRUBIN TOTAL 0.5 mg/dL (0.2-1.0); CALCIUM 8.9 mg/dL (8.5-10.1); CARBON DIOXIDE,CO2 25.8 mmol/L (21.0-32.0); CREATININE 1.2 mg/dL (0.6-1.0); EST CRCL DRUG DOSING (CG) 30.44 mL/min; MAGNESIUM 1.7 mg/dL (1.8-2.4); PHOSPHORUS 2.8 mg/dL (2.6-4.7); POTASSIUM,K 3.3 mmol/L (3.5-5.1); PROTEIN TOTAL,TP 6.5 g/dL (6.4-8.2)
[2023-09-12] MEDS: traMADol 50 MG Tab PO PRN (07:27)
[2023-09-12] MEDS ORDERED: Potassium Chloride 20 MEQ Tab.ER PO ONE (07:35)
[2023-09-12] MEDS ORDERED: Magnesium Sulfate/Water 2 GM in Premix Bag 1 BAG IV ONE (07:35)
[2023-09-12] MEDS: Insulin Aspart 100 Units/ML 3 ML Pen SUBCUT SCH ×3 (07:57→17:15)
[2023-09-12] MEDS: Lisinopril 10 MG Tab PO SCH (08:04)
[2023-09-12] MEDS: Escitalopram 10 MG Tab PO SCH (08:04)
[2023-09-12] MEDS: BUPROPION HCL 200 MG PO SCH ×2 (08:05→20:18)
[2023-09-12] MEDS: amLODIPine 5 MG Tab PO SCH (08:05)
[2023-09-12 11:28] LABS: LACTIC ACID 1.6 mmol/L (0.4-2.0)
[2023-09-12] MEDS: Pantoprazole 40 MG in Sodium Chloride 0.9% 10 ML IVPUSH SCH (12:07)
[2023-09-12] MEDS: Simvastatin 10 MG Tab PO SCH (20:15)
[2023-09-12] MEDS: Melatonin 3 MG Tab PO PRN (20:16)
[2023-09-12] MEDS: Acetaminophen 325 MG Tab PO PRN (20:16)
[2023-09-12] MEDS: Enoxaparin 40 MG/0.4 ML Syringe SUBCUT SCH (20:19)
[2023-09-12] MEDS: Insulin Glargine,Hum.Rec.Anlog 100 UNIT/ML 3 ML Pen SUBCUT SCH (20:21)
[2023-09-13] MEDS: Lactated Ringers 1,000 ML IV SCH ×3 (03:53→19:56)
[2023-09-13] MEDS: Albuterol/Ipratropium 3.0-0.5 MG/3 ML Neb Soln NEB PRN ×2 (03:56→21:17)
[2023-09-13 06:13] LABS: BASOPHILS ABSOLUTE AUTO 0.06 K/uL (0.00-0.20); BASOPHILS PERCENT AUTO 0.7 % (0.0-1.0); EOSINOPHILS ABSOLUTE AUTO 0.12 K/uL (0.00-0.45); EOSINOPHILS PERCENT AUTO 1.4 % (0.0-6.0); HEMATOCRIT 39.4 % (37.0-47.0); IMMATURE GRAN ABSOLUTE AUTO 0.02 K/uL (0.00-0.05); IMMATURE GRAN PERCENT AUTO 0.2 % (0.0-0.4); LYMPHOCYTES ABSOLUTE AUTO 2.25 K/uL (1.00-4.80); LYMPHOCYTES PERCENT AUTO 26.8 % (24.0-44.0); MEAN CORPUSCULAR HEMOGLOBIN 30.6 pg (28.0-32.0); MEAN CORPUSCULAR HGB CONC 35.5 g/dL (32.0-36.0); MEAN PLATELET VOLUME 8.3 fL (9.4-12.3); MONOCYTES ABSOLUTE AUTO 0.74 K/uL (0.00-0.80); MONOCYTES PERCENT AUTO 8.8 % (0.0-8.0); NEUTROPHILS ABSOLUTE AUTO 5.21 K/uL (1.80-7.70); NEUTROPHILS PERCENT AUTO 62.1 % (41.0-71.0); PLATELET COUNT,PLT 250 K/uL (150-400); RED BLOOD CELL COUNT 4.58 M/uL (4.10-5.30)
[2023-09-13 06:41] LABS: ALBUMIN 2.8 g/dL (3.4-5.0); BILIRUBIN TOTAL 0.4 mg/dL (0.2-1.0); CALCIUM 8.6 mg/dL (8.5-10.1); CARBON DIOXIDE,CO2 26.4 mmol/L (21.0-32.0); CREATININE 1.4 mg/dL (0.6-1.0); EST CRCL DRUG DOSING (CG) 26.09 mL/min; MAGNESIUM 1.9 mg/dL (1.8-2.4); POTASSIUM,K 3.5 mmol/L (3.5-5.1); PROTEIN TOTAL,TP 5.7 g/dL (6.4-8.2)
[2023-09-13] MEDS: Insulin Aspart 100 Units/ML 3 ML Pen SUBCUT SCH ×3 (07:57→17:33)
[2023-09-13] MEDS ORDERED: Lisinopril 10 MG Tab ONE (08:52)
[2023-09-13] MEDS: Escitalopram 10 MG Tab PO SCH (08:55)
[2023-09-13] MEDS: Lisinopril 10 MG Tab PO SCH (08:56)
[2023-09-13] MEDS: amLODIPine 5 MG Tab PO SCH (08:56)
[2023-09-13] MEDS: BUPROPION HCL 200 MG PO SCH ×2 (08:57→21:05)
[2023-09-13] MEDS ORDERED: Pantoprazole 40 MG Tab.CR PO SCH (09:00)
[2023-09-13] MEDS: Acetaminophen 325 MG Tab PO PRN ×2 (09:31→21:10)
[2023-09-13] MEDS: Pantoprazole 40 MG in Sodium Chloride 0.9% 10 ML IVPUSH SCH (11:46)
[2023-09-13] MEDS: Enoxaparin 40 MG/0.4 ML Syringe SUBCUT SCH (21:04)
[2023-09-13] MEDS: Simvastatin 10 MG Tab PO SCH (21:06)
[2023-09-13] MEDS: Melatonin 3 MG Tab PO PRN (21:11)
[2023-09-13] MEDS: Insulin Glargine,Hum.Rec.Anlog 100 UNIT/ML 3 ML Pen SUBCUT SCH (23:27)
[2023-09-14] MEDS: Lactated Ringers 1,000 ML IV SCH (05:56)
[2023-09-14 06:47] LABS: BASOPHILS ABSOLUTE AUTO 0.06 K/uL (0.00-0.20); BASOPHILS PERCENT AUTO 0.6 % (0.0-1.0); EOSINOPHILS ABSOLUTE AUTO 0.19 K/uL (0.00-0.45); HEMOGLOBIN 13.4 g/dL (12.0-16.0); IMMATURE GRAN ABSOLUTE AUTO 0.03 K/uL (0.00-0.05); IMMATURE GRAN PERCENT AUTO 0.3 % (0.0-0.4); LYMPHOCYTES ABSOLUTE AUTO 2.71 K/uL (1.00-4.80); LYMPHOCYTES PERCENT AUTO 28.4 % (24.0-44.0); MEAN CORPUSCULAR HEMOGLOBIN 30.5 pg (28.0-32.0); MEAN CORPUSCULAR HGB CONC 35.3 g/dL (32.0-36.0); MEAN CORPUSCULAR VOLUME 86.4 fL (83.0-99.0); MEAN PLATELET VOLUME 8.5 fL (9.4-12.3); MONOCYTES ABSOLUTE AUTO 0.82 K/uL (0.00-0.80); MONOCYTES PERCENT AUTO 8.6 % (0.0-8.0); NEUTROPHILS ABSOLUTE AUTO 5.74 K/uL (1.80-7.70); NEUTROPHILS PERCENT AUTO 60.1 % (41.0-71.0); PLATELET COUNT,PLT 271 K/uL (150-400); WHITE BLOOD CELL COUNT,WBC 9.55 K/uL (3.9-11.3)
[2023-09-14 07:06] LABS: CALCIUM 8.8 mg/dL (8.5-10.1); CARBON DIOXIDE,CO2 28.6 mmol/L (21.0-32.0); CREATININE 1.6 mg/dL (0.6-1.0); EST CRCL DRUG DOSING (CG) 22.83 mL/min; POTASSIUM,K 3.8 mmol/L (3.5-5.1)
[2023-09-14] MEDS: Insulin Aspart 100 Units/ML 3 ML Pen SUBCUT SCH ×2 (07:49→10:48)
[2023-09-14] MEDS ORDERED: Pantoprazole 40 MG Tab.CR PO SCH (09:00)
[2023-09-14] MEDS: Lisinopril 10 MG Tab PO SCH (10:31)
[2023-09-14] MEDS: amLODIPine 5 MG Tab PO SCH (10:31)
[2023-09-14] MEDS: BUPROPION HCL 200 MG PO SCH (10:31)
[2023-09-14] MEDS: Escitalopram 10 MG Tab PO SCH (10:31)
== END 2023-09-14 16:38 | disposition home or self-care (01) | DRG 74 ==
LOC: MW.ED 11:45 → MW.MS 17:33 → OBSVTOIN 17:33 → MW.MS 09-09 13:31
PROVIDERS: ADMIT Internal Medicine; ATTEND Internal Medicine
DX: E11.43 Type 2 diabetes mellitus with diabetic autonomic (poly)neuropathy (principal); R65.10 Systemic inflammatory response syndrome (SIRS) of non-infectious origin without acute organ dysfunction; E87.1 Hypo-osmolality and hyponatremia; K31.84 Gastroparesis; E11.22 Type 2 diabetes mellitus with diabetic chronic kidney disease; I12.9 Hypertensive chronic kidney disease with stage 1 through stage 4 chronic kidney disease, or unspecified chronic kidney disease; D63.1 Anemia in chronic kidney disease; K59.09 Other constipation; N18.30 Chronic kidney disease, stage 3 unspecified; J45.909 Unspecified asthma, uncomplicated; F32.A Depression, unspecified; E87.6 Hypokalemia; R07.89 Other chest pain; F41.9 Anxiety disorder, unspecified; J44.9 Chronic obstructive pulmonary disease, unspecified; E11.65 Type 2 diabetes mellitus with hyperglycemia; E78.00 Pure hypercholesterolemia, unspecified; Z88.8 Allergy status to other drugs, medicaments and biological substances; Z79.899 Other long term (current) drug therapy; Z79.4 Long term (current) use of insulin; Z86.718 Personal history of other venous thrombosis and embolism; Z79.01 Long term (current) use of anticoagulants; Z86.711 Personal history of pulmonary embolism; Z98.890 Other specified postprocedural states; Z11.52 Encounter for screening for COVID-19
CPT/HCPCS: 0240U; 36415; 71045; 71045-26; 74176; 74176-26; 76705; 76705-26; 78264; 78264-26; 80048; 80053; 81001; 82009; 82803; 82947; 83036; 83605; 83690; 83735; 84100; 84484; 85025; 87040; 93005; 93010; 96361; 96372; 96374; 96375; 96376; 97161-GP; 99222; 99232; 99239; 99285; 99285-25; A9270-GY; A9541; C9113; G0378; J1170; J1650; J1815-GY; J1920; J2270; J2405; J3475; J3480; J3490; J7030; J7120; J7620-GY

== ENCOUNTER 2024-02-12 16:28 | Observation (INO) | payer MEDICARE, OTHER, MEDICAID ==
[2024-02-12 17:10] LABS: BASOPHILS ABSOLUTE AUTO 0.09 K/uL (0.00-0.20); BASOPHILS PERCENT AUTO 0.5 % (0.0-1.0); HEMOGLOBIN 17.2 g/dL (12.0-16.0); IMMATURE GRAN ABSOLUTE AUTO 0.09 K/uL (0.00-0.05); IMMATURE GRAN PERCENT AUTO 0.5 % (0.0-0.4); LYMPHOCYTES ABSOLUTE AUTO 0.79 K/uL (1.00-4.80); LYMPHOCYTES PERCENT AUTO 4.4 % (24.0-44.0); MEAN CORPUSCULAR HGB CONC 35.1 g/dL (32.0-36.0); MEAN CORPUSCULAR VOLUME 85.4 fL (83.0-99.0); MONOCYTES ABSOLUTE AUTO 0.62 K/uL (0.00-0.80); MONOCYTES PERCENT AUTO 3.5 % (0.0-8.0); NEUTROPHILS ABSOLUTE AUTO 16.37 K/uL (1.80-7.70); NEUTROPHILS PERCENT AUTO 91.1 % (41.0-71.0); PLATELET COUNT,PLT 339 K/uL (150-400); RED BLOOD CELL COUNT 5.74 M/uL (4.10-5.30); WHITE BLOOD CELL COUNT,WBC 17.96 K/uL (3.9-11.3)
[2024-02-12 17:21] LABS: BASE EXCESS VENOUS -0.9 (-2.0-3.0); PH,VENOUS 7.54 (7.31-7.41)
[2024-02-12 17:32] LABS: INR 0.99 (0.86-1.11); PTT,PARTIAL THROMBOPLSTIN TIME 24.3 SEC (23.9-30.7)
[2024-02-12] MEDS: Cefepime 2 GM in Sodium Chloride 0.9% 50 ML IV STA (17:34)
[2024-02-12] MEDS: Sodium Chloride 0.9% 2.5 ML Syringe FLUSH PRN (17:34)
[2024-02-12] MEDS: Ondansetron 4 MG/2 ML SDV IVPUSH ONE (17:34)
[2024-02-12] MEDS: Morphine 4 MG/ML Syringe IVPUSH ONE (17:34)
[2024-02-12] MEDS: Sodium Chloride 0.9% 10 ML Syringe FLUSH PRN (17:34)
[2024-02-12 17:46] LABS: ACETAMINOPHEN <2.0 ug/mL; ETHANOL BLOOD MEDICAL <3 mg/dL; SALICYLATE 5.8 mg/dL (0.0-20.0)
[2024-02-12 17:47] LABS: A/G RATIO 0.9 (0.9-1.6); ALBUMIN 3.9 g/dL (3.4-5.0); BILIRUBIN TOTAL 0.7 mg/dL (0.2-1.0); CALCIUM 10.6 mg/dL (8.5-10.1); CARBON DIOXIDE,CO2 18.8 mmol/L (21.0-32.0); CREATININE 1.7 mg/dL (0.6-1.0); EST CRCL DRUG DOSING (CG) 24.38 mL/min; PROTEIN TOTAL,TP 8.3 g/dL (6.4-8.2)
[2024-02-12 17:49] LABS: MAGNESIUM 1.6 mg/dL (1.8-2.4)
[2024-02-12 17:56] LABS: TSH ULTRASENSITIVE 4.51 uIU/mL (0.36-3.74)
[2024-02-12 17:59] LABS: CORONAVIRUS COVID-19 NAA NEGATIVE (NEGATIVE); INFLUENZA A NAA NEGATIVE (NEGATIVE); INFLUENZA B NAA NEGATIVE (NEGATIVE); RESPIRATORY SYNCYTIAL VIR NAA NEGATIVE (NEGATIVE)
[2024-02-12 18:15] LABS: T4 FREE 1.23 ng/dL (0.76-1.46)
[2024-02-12] MEDS ORDERED: Glucagon,Human Recombinant 1 MG Vial IM PRN ×2 (18:20→21:53)
[2024-02-12] MEDS ORDERED: 50% Dextrose in Water 50 ML Syringe IVPUSH PRN ×2 (18:20→21:53)
[2024-02-12] MEDS: Sodium Chloride 0.9% 1,000 ML IV STA ×3 (18:41→21:07)
[2024-02-12] MEDS: Insulin Regular, Human 100 Units/ML 10 ML Vial IVPUSH STA (18:44)
[2024-02-12 18:50] LABS: APPEARANCE,URINE CLEAR; BILIRUBIN,URINE NEGATIVE (NEGATIVE); COLOR,URINE YELLOW; GLUCOSE,URINE >=1000 mg/dL (NEGATIVE); KETONES,URINE 40 mg/dL (NEGATIVE); LEUKOCYTE ESTERASE,URINE NEGATIVE (NEGATIVE); NITRITE,URINE NEGATIVE (NEGATIVE); OCCULT BLOOD,URINE SMALL (NEGATIVE); PROTEIN,URINE 100 mg/dL (NEGATIVE); UROBILINOGEN,URINE 0.2 EU/dL (<2.0)
[2024-02-12 18:53] LABS: LACTIC ACID 2.3 mmol/L (0.4-2.0)
[2024-02-12 18:56] LABS: AMPHETAMINES SCREEN, URINE NEGATIVE (CUTOFF=500); BARBITURATE SCREEN,URINE NEGATIVE (CUTOFF=200); BENZODIAZEPINES SCREEN,URINE NEGATIVE (CUTOFF=150); BUPRENORPHINE SCREEN,URINE NEGATIVE (CUTOFF=10); METHADONE SCREEN, URINE NEGATIVE (CUTOFF=200); METHAMPHETAMINES SCREEN, URINE NEGATIVE (CUTOFF=500); OXYCODONE SCREEN,URINE NEGATIVE (CUT0FF=100); PCP SCREEN,URINE NEGATIVE (CUTOFF=25); THC SCREEN,URINE 20 NG/ML PRESUMPTIVE POSITIVE (CUTOFF=50)
[2024-02-12 19:53] LABS: BACTERIA,URINE FEW (NEGATIVE); EPITHELIAL CELLS,URINE FEW (NONE-FEW)
[2024-02-12] MEDS: Labetalol 100 MG/20 ML MDV IVPUSH STA ×2 (21:00→21:08)
[2024-02-12] MEDS ORDERED: Melatonin 3 MG Tab PO PRN (21:45)
[2024-02-12] MEDS ORDERED: Ondansetron 4 MG/2 ML SDV IVPUSH PRN (21:45)
[2024-02-12] MEDS ORDERED: Polyethylene Glycol 3350 Powder 17 GM Packet PO PRN (21:45)
[2024-02-12] MEDS ORDERED: Acetaminophen 650 MG Supp RECTAL PRN (21:45)
[2024-02-12] MEDS: Pantoprazole 40 MG in Sodium Chloride 0.9% 10 ML IVPUSH SCH (23:48)
[2024-02-12] MEDS: Insulin Aspart 100 Units/ML 3 ML Pen SUBCUT SCH (23:54)
[2024-02-12] MEDS: Magnesium Sulfate/Water 2 GM in Premix Bag 1 BAG IV ONE (23:59)
[2024-02-13] MEDS: Enoxaparin 40 MG/0.4 ML Syringe SUBCUT SCH (00:02)
[2024-02-13] MEDS: Cefepime 2 GM in Sodium Chloride 0.9% 50 ML IV SCH ×2 (00:14→02:04)
[2024-02-13] MEDS: Sodium Chloride 0.9% 1,000 ML IV SCH (00:25)
[2024-02-13] MEDS: Cefepime 2 GM Vial ONE (02:03)
[2024-02-13 06:09] LABS: BASOPHILS ABSOLUTE AUTO 0.04 K/uL (0.00-0.20); BASOPHILS PERCENT AUTO 0.3 % (0.0-1.0); HEMATOCRIT 39.9 % (37.0-47.0); HEMOGLOBIN 13.9 g/dL (12.0-16.0); IMMATURE GRAN ABSOLUTE AUTO 0.04 K/uL (0.00-0.05); IMMATURE GRAN PERCENT AUTO 0.3 % (0.0-0.4); LYMPHOCYTES ABSOLUTE AUTO 1.47 K/uL (1.00-4.80); LYMPHOCYTES PERCENT AUTO 10.9 % (24.0-44.0); MEAN CORPUSCULAR HEMOGLOBIN 30.5 pg (28.0-32.0); MEAN CORPUSCULAR HGB CONC 34.8 g/dL (32.0-36.0); MEAN CORPUSCULAR VOLUME 87.7 fL (83.0-99.0); MEAN PLATELET VOLUME 8.3 fL (9.4-12.3); MONOCYTES ABSOLUTE AUTO 1.09 K/uL (0.00-0.80); MONOCYTES PERCENT AUTO 8.1 % (0.0-8.0); NEUTROPHILS ABSOLUTE AUTO 10.88 K/uL (1.80-7.70); NEUTROPHILS PERCENT AUTO 80.4 % (41.0-71.0); PLATELET COUNT,PLT 297 K/uL (150-400); RED BLOOD CELL COUNT 4.55 M/uL (4.10-5.30); WHITE BLOOD CELL COUNT,WBC 13.52 K/uL (3.9-11.3)
[2024-02-13 06:36] LABS: CALCIUM 8.2 mg/dL (8.5-10.1); CARBON DIOXIDE,CO2 21.6 mmol/L (21.0-32.0); CREATININE 1.5 mg/dL (0.6-1.0); EST CRCL DRUG DOSING (CG) 23.99 mL/min; MAGNESIUM 2.3 mg/dL (1.8-2.4); PHOSPHORUS 4.3 mg/dL (2.6-4.7); POTASSIUM,K 3.5 mmol/L (3.5-5.1)
[2024-02-13] MEDS: Metoclopramide 5 MG Tab PO SCH (08:25)
[2024-02-13] MEDS: Acetaminophen 325 MG Tab PO PRN (08:44)
[2024-02-13] MEDS: Albuterol/Ipratropium 3.0-0.5 MG/3 ML Neb Soln NEB PRN (08:45)
[2024-02-13] MEDS ORDERED: Non-Formulary Medication 1 Each (Gabapentin 600 MG Tablet) PO SCH (09:00)
[2024-02-13] MEDS ORDERED: Non-Formulary Medication 1 Each (Tiotropium 18 MCG Cap) INH SCH (09:00)
[2024-02-13] MEDS ORDERED: BUPROPION HCL 200 MG PO SCH (09:00)
[2024-02-13] MEDS ORDERED: Non-Formulary Medication 1 Each (Escitalopram 20 MG Tablet) PO SCH (09:00)
[2024-02-13] MEDS ORDERED: Non-Formulary Medication 1 Each (Lisinopril 20 MG Tablet) PO SCH (09:00)
[2024-02-13] MEDS: amLODIPine 5 MG Tab PO SCH (09:09)
[2024-02-13] MEDS: Lisinopril 10 MG Tab PO SCH (09:10)
[2024-02-13] MEDS: Nicotine 14 MG/24 Hr Patch TRDERM SCH (09:10)
[2024-02-13] MEDS: Escitalopram 10 MG Tab PO SCH (09:10)
[2024-02-13] MEDS: Tiotropium Bromide 4 GM Inhalation Spray (2.5mcg/1 dose; 10 doses) INH SCH (09:10)
[2024-02-13] MEDS: BUPROPION 200 MG PO SCH (09:19)
[2024-02-13] MEDS ORDERED: Gabapentin 300 MG Cap PO SCH (21:00)
== END 2024-02-13 13:45 | disposition home or self-care (01) ==
LOC: MW.ED 16:28 → MW.MS 22:01
PROVIDERS: ADMIT Family Medicine; ATTEND Family Medicine
DX: E11.43 Type 2 diabetes mellitus with diabetic autonomic (poly)neuropathy (principal); K31.84 Gastroparesis; R41.82 Altered mental status, unspecified; N17.9 Acute kidney failure, unspecified; I12.9 Hypertensive chronic kidney disease with stage 1 through stage 4 chronic kidney disease, or unspecified chronic kidney disease; E11.22 Type 2 diabetes mellitus with diabetic chronic kidney disease; N18.9 Chronic kidney disease, unspecified; R10.13 Epigastric pain; J44.9 Chronic obstructive pulmonary disease, unspecified; G47.30 Sleep apnea, unspecified; F41.9 Anxiety disorder, unspecified; F32.A Depression, unspecified; D64.9 Anemia, unspecified; E66.9 Obesity, unspecified; Z68.30 Body mass index [BMI] 30.0-30.9, adult; Z88.8 Allergy status to other drugs, medicaments and biological substances; Z79.899 Other long term (current) drug therapy; Z20.822 Contact with and (suspected) exposure to COVID-19
CPT/HCPCS: 0241U; 36415; 51702; 70450; 71045; 71250; 74176; 80048; 80053; 80143; 80179; 80305; 80307; 81001; 82140; 82803; 82947; 83605; 83690; 83735; 84100; 84439; 84443; 84484; 85025; 85610; 85730; 87040; 87086; 93005; 96361; 96365; 96366; 96367; 96372; 96375; 96376; 99285; A9270; C9113; G0378; J0692; J1650; J1815; J1921; J2270; J2405; J3475; J3490; J7030; 93010; J7620-GY

== ENCOUNTER 2024-05-15 19:13 | Observation (INO) | payer MEDICARE, OTHER, MEDICAID ==
[2024-05-15] MEDS: Ondansetron 4 MG/2 ML SDV IVPUSH STA (19:48)
[2024-05-15] MEDS: Ketorolac 30 MG/ML SDV IVPUSH STA (19:48)
[2024-05-15] MEDS: Sodium Chloride 0.9% 1,000 ML IV STA ×3 (19:48→21:56)
[2024-05-15] MEDS: Sodium Chloride 0.9% 2.5 ML Syringe FLUSH PRN (19:49)
[2024-05-15] MEDS: Sodium Chloride 0.9% 10 ML Syringe FLUSH PRN (19:49)
[2024-05-15 19:52] LABS: BASOPHILS ABSOLUTE AUTO 0.03 K/uL (0.00-0.20); BASOPHILS PERCENT AUTO 0.2 % (0.0-1.0); HEMATOCRIT 48.2 % (37.0-47.0); HEMOGLOBIN 17.3 g/dL (12.0-16.0); IMMATURE GRAN ABSOLUTE AUTO 0.05 K/uL (0.00-0.05); IMMATURE GRAN PERCENT AUTO 0.4 % (0.0-0.4); LYMPHOCYTES ABSOLUTE AUTO 0.76 K/uL (1.00-4.80); LYMPHOCYTES PERCENT AUTO 5.4 % (24.0-44.0); MEAN CORPUSCULAR HEMOGLOBIN 30.3 pg (28.0-32.0); MEAN CORPUSCULAR HGB CONC 35.9 g/dL (32.0-36.0); MEAN CORPUSCULAR VOLUME 84.4 fL (83.0-99.0); MEAN PLATELET VOLUME 8.1 fL (9.4-12.3); MONOCYTES ABSOLUTE AUTO 0.33 K/uL (0.00-0.80); MONOCYTES PERCENT AUTO 2.3 % (0.0-8.0); NEUTROPHILS ABSOLUTE AUTO 12.95 K/uL (1.80-7.70); NEUTROPHILS PERCENT AUTO 91.7 % (41.0-71.0); PLATELET COUNT,PLT 368 K/uL (150-400); RED BLOOD CELL COUNT 5.71 M/uL (4.10-5.30); WHITE BLOOD CELL COUNT,WBC 14.12 K/uL (3.9-11.3)
[2024-05-15 19:58] LABS: BASE EXCESS VENOUS -3.7 (-2.0-3.0); PH,VENOUS 7.4 (7.31-7.41)
[2024-05-15 20:24] LABS: ALBUMIN 3.8 g/dL (3.4-5.0); BILIRUBIN TOTAL 0.5 mg/dL (0.2-1.0); CALCIUM 9.6 mg/dL (8.5-10.1); CARBON DIOXIDE,CO2 17.9 mmol/L (21.0-32.0); CREATININE 1.5 mg/dL (0.6-1.0); EST CRCL DRUG DOSING (CG) 23.99 mL/min; POTASSIUM,K 3.7 mmol/L (3.5-5.1); PROTEIN TOTAL,TP 7.5 g/dL (6.4-8.2)
[2024-05-15 20:50] LABS: MAGNESIUM 1.8 mg/dL (1.8-2.4); PHOSPHORUS 4.7 mg/dL (2.6-4.7)
[2024-05-15 21:02] LABS: BILIRUBIN,URINE NEGATIVE (NEGATIVE); COLOR,URINE YELLOW; GLUCOSE,URINE >=1000 mg/dL (NEGATIVE); KETONES,URINE 15 mg/dL (NEGATIVE); LEUKOCYTE ESTERASE,URINE NEGATIVE (NEGATIVE); NITRITE,URINE NEGATIVE (NEGATIVE); OCCULT BLOOD,URINE SMALL (NEGATIVE); PROTEIN,URINE >=300 mg/dL (NEGATIVE); UROBILINOGEN,URINE 0.2 EU/dL (<2.0)
[2024-05-15 21:03] LABS: APPEARANCE,URINE HAZY
[2024-05-15 21:08] LABS: BACTERIA,URINE FEW (NEGATIVE); EPITHELIAL CELLS,URINE FEW (NONE-FEW); MUCUS,URINE LIGHT (NONE-MOD); WBC,URINE 0-1 (0-5/HPF)
[2024-05-15] MEDS ORDERED: Morphine 4 MG/ML Syringe IVPUSH STA (21:31)
[2024-05-15] MEDS: droPERidol 5 MG/2 ML SDV IVPUSH STA (21:56)
[2024-05-15] MEDS: Morphine 2 MG/ML SYRINGE IVPUSH STA (21:56)
[2024-05-15 22:04] LABS: HEMOGLOBIN A1C 8.6 %
[2024-05-15 22:11] LABS: CALCIUM 8.1 mg/dL (8.5-10.1); CARBON DIOXIDE,CO2 19.8 mmol/L (21.0-32.0); CREATININE 1.4 mg/dL (0.6-1.0); EST CRCL DRUG DOSING (CG) 25.71 mL/min; POTASSIUM,K 3.5 mmol/L (3.5-5.1)
[2024-05-15 23:20] LABS: LACTIC ACID 1.2 mmol/L (0.4-2.0)
[2024-05-16] MEDS ORDERED: Glucagon,Human Recombinant 1 MG Vial IM PRN (00:21)
[2024-05-16] MEDS ORDERED: 50% Dextrose in Water 50 ML Syringe IVPUSH PRN (00:21)
[2024-05-16] MEDS ORDERED: Ondansetron 4 MG/2 ML SDV IVPUSH PRN (00:22)
[2024-05-16] MEDS ORDERED: Morphine 2 MG/ML SYRINGE IVPUSH PRN (00:23)
[2024-05-16] MEDS ORDERED: Acetaminophen 325 MG Tab PO PRN (00:25)
[2024-05-16] MEDS: Insulin Aspart 100 Units/ML 3 ML Pen SUBCUT SCH (01:30)
[2024-05-16] MEDS: Sodium Chloride 0.9% 1,000 ML IV SCH (01:33)
[2024-05-16 05:56] LABS: BASOPHILS ABSOLUTE AUTO 0.05 K/uL (0.00-0.20); BASOPHILS PERCENT AUTO 0.5 % (0.0-1.0); EOSINOPHILS ABSOLUTE AUTO 0.02 K/uL (0.00-0.45); EOSINOPHILS PERCENT AUTO 0.2 % (0.0-6.0); HEMATOCRIT 42.4 % (37.0-47.0); HEMOGLOBIN 14.6 g/dL (12.0-16.0); IMMATURE GRAN ABSOLUTE AUTO 0.03 K/uL (0.00-0.05); IMMATURE GRAN PERCENT AUTO 0.3 % (0.0-0.4); LYMPHOCYTES ABSOLUTE AUTO 2.64 K/uL (1.00-4.80); LYMPHOCYTES PERCENT AUTO 23.8 % (24.0-44.0); MEAN CORPUSCULAR HEMOGLOBIN 30.2 pg (28.0-32.0); MEAN CORPUSCULAR HGB CONC 34.4 g/dL (32.0-36.0); MEAN CORPUSCULAR VOLUME 87.6 fL (83.0-99.0); MEAN PLATELET VOLUME 7.9 fL (9.4-12.3); MONOCYTES ABSOLUTE AUTO 1.13 K/uL (0.00-0.80); MONOCYTES PERCENT AUTO 10.2 % (0.0-8.0); PLATELET COUNT,PLT 310 K/uL (150-400); RED BLOOD CELL COUNT 4.84 M/uL (4.10-5.30); WHITE BLOOD CELL COUNT,WBC 11.07 K/uL (3.9-11.3)
[2024-05-16 06:15] LABS: CALCIUM 8.3 mg/dL (8.5-10.1); CREATININE 1.5 mg/dL (0.6-1.0); EST CRCL DRUG DOSING (CG) 23.99 mL/min; POTASSIUM,K 4.1 mmol/L (3.5-5.1)
[2024-05-16] MEDS ORDERED: Sodium Chloride 0.9% 10 ML Syringe FLUSH PRN (08:27)
[2024-05-16] MEDS ORDERED: Docusate Sodium 100 MG Cap PO PRN (08:27)
[2024-05-16] MEDS ORDERED: Sodium Chloride 0.9% 2.5 ML Syringe FLUSH PRN (08:27)
[2024-05-16] MEDS: Metoclopramide 10 MG/2 ML SDV IVPUSH SCH (10:14)
[2024-05-16] MEDS: Pantoprazole 40 MG in Sodium Chloride 0.9% 10 ML IVPUSH SCH (10:15)
== END 2024-05-16 17:30 | disposition home or self-care (01) ==
LOC: MW.ED 19:13 → MW.MS 22:51
PROVIDERS: ADMIT Internal Medicine; ATTEND Internal Medicine
DX: E87.1 Hypo-osmolality and hyponatremia (principal); I12.9 Hypertensive chronic kidney disease with stage 1 through stage 4 chronic kidney disease, or unspecified chronic kidney disease; E11.22 Type 2 diabetes mellitus with diabetic chronic kidney disease; N18.30 Chronic kidney disease, stage 3 unspecified; E11.43 Type 2 diabetes mellitus with diabetic autonomic (poly)neuropathy; E78.00 Pure hypercholesterolemia, unspecified; J44.9 Chronic obstructive pulmonary disease, unspecified; Z87.891 Personal history of nicotine dependence; Z79.84 Long term (current) use of oral hypoglycemic drugs; Z79.899 Other long term (current) drug therapy; Z91.041 Radiographic dye allergy status; Z91.013 Allergy to seafood
CPT/HCPCS: 36415; 74176; 80048; 80053; 81001; 82009; 82803; 82947; 83036; 83605; 83690; 83735; 84100; 84484; 85025; 93005; 96361; 96374; 96375; 99285; J1790; J1815; J1885; J2270; J2405; J2470; J2765; J3490; J7030; 93010; 96376; G0378

== ENCOUNTER 2024-10-12 19:22 | Emergency (ER) | payer MEDICARE, MEDICAID ==
[2024-10-12 20:19] LABS: APPEARANCE,URINE SLT CLOUDY; BILIRUBIN,URINE NEGATIVE (NEGATIVE); COLOR,URINE YELLOW; GLUCOSE,URINE 250 mg/dL (NEGATIVE); KETONES,URINE NEGATIVE (NEGATIVE); LEUKOCYTE ESTERASE,URINE TRACE (NEGATIVE); NITRITE,URINE POSITIVE (NEGATIVE); OCCULT BLOOD,URINE TRACE-INTACT (NEGATIVE); PROTEIN,URINE 100 mg/dL (NEGATIVE); UROBILINOGEN,URINE 0.2 EU/dL (<2.0)
[2024-10-12 20:47] LABS: WBC,URINE 30-40 (0-5/HPF)
[2024-10-12 20:48] LABS: BACTERIA,URINE 3+ (NEGATIVE); MUCUS,URINE LIGHT (NONE-MOD); SQUAMOUS EPITHELIAL CELLS,UR FEW
[2024-10-12] MEDS: Cephalexin 500 MG Cap PO STA (21:16)
== END 2024-10-12 21:30 | disposition home or self-care (01) ==
LOC: MW.ED 19:22
DX: N30.01 Acute cystitis with hematuria (principal); Z75.8 Other problems related to medical facilities and other health care; I10 Essential (primary) hypertension; E78.00 Pure hypercholesterolemia, unspecified; J44.9 Chronic obstructive pulmonary disease, unspecified; E11.9 Type 2 diabetes mellitus without complications; Z79.899 Other long term (current) drug therapy; Z91.048 Other nonmedicinal substance allergy status; Z91.013 Allergy to seafood
CPT/HCPCS: 81001; 87086; 87088; 87186; 99284; A9270

== ENCOUNTER 2024-10-20 16:26 | Observation (INO) | payer MEDICARE, MEDICAID ==
[2024-10-20] MEDS ORDERED: Sodium Chloride 0.9% 2.5 ML Syringe FLUSH PRN (16:37)
[2024-10-20] MEDS ORDERED: Sodium Chloride 0.9% 10 ML Syringe FLUSH PRN (16:37)
[2024-10-20] MEDS: Sodium Chloride 0.9% 1,000 ML IV ONE ×3 (16:40→21:59)
[2024-10-20 17:54] LABS: APPEARANCE,URINE CLEAR; BILIRUBIN,URINE NEGATIVE (NEGATIVE); COLOR,URINE YELLOW; GLUCOSE,URINE NEGATIVE (NEGATIVE); KETONES,URINE NEGATIVE (NEGATIVE); LEUKOCYTE ESTERASE,URINE NEGATIVE (NEGATIVE); NITRITE,URINE NEGATIVE (NEGATIVE); OCCULT BLOOD,URINE NEGATIVE (NEGATIVE); PROTEIN,URINE 30 mg/dL (NEGATIVE); UROBILINOGEN,URINE 0.2 EU/dL (<2.0)
[2024-10-20 18:04] LABS: BASOPHILS ABSOLUTE AUTO 0.06 K/uL (0.00-0.20); BASOPHILS PERCENT AUTO 0.6 % (0.0-1.0); EOSINOPHILS ABSOLUTE AUTO 0.27 K/uL (0.00-0.45); EOSINOPHILS PERCENT AUTO 2.7 % (0.0-6.0); HEMATOCRIT 34.5 % (37.0-47.0); HEMOGLOBIN 12.3 g/dL (12.0-16.0); IMMATURE GRAN ABSOLUTE AUTO 0.01 K/uL (0.00-0.05); IMMATURE GRAN PERCENT AUTO 0.1 % (0.0-0.4); LYMPHOCYTES ABSOLUTE AUTO 2.17 K/uL (1.00-4.80); LYMPHOCYTES PERCENT AUTO 21.8 % (24.0-44.0); MEAN CORPUSCULAR HEMOGLOBIN 31.4 pg (28.0-32.0); MEAN CORPUSCULAR HGB CONC 35.7 g/dL (32.0-36.0); MEAN PLATELET VOLUME 8.7 fL (9.4-12.3); MONOCYTES ABSOLUTE AUTO 0.85 K/uL (0.00-0.80); MONOCYTES PERCENT AUTO 8.5 % (0.0-8.0); NEUTROPHILS ABSOLUTE AUTO 6.61 K/uL (1.80-7.70); NEUTROPHILS PERCENT AUTO 66.3 % (41.0-71.0); PLATELET COUNT,PLT 318 K/uL (150-400); RED BLOOD CELL COUNT 3.92 M/uL (4.10-5.30); WHITE BLOOD CELL COUNT,WBC 9.97 K/uL (3.9-11.3)
[2024-10-20 18:05] LABS: BACTERIA,URINE RARE (NEGATIVE); EPITHELIAL CELLS,URINE FEW (NONE-FEW); MUCUS,URINE LIGHT (NONE-MOD); RBC,URINE 0-1 (0-2/HPF)
[2024-10-20 18:15] LABS: ALBUMIN 3.1 g/dL (3.4-5.0); BILIRUBIN TOTAL 0.3 mg/dL (0.2-1.0); CALCIUM 8.4 mg/dL (8.5-10.1); CARBON DIOXIDE,CO2 25.5 mmol/L (21.0-32.0); CREATININE 2.7 mg/dL (0.6-1.0); EST CRCL DRUG DOSING (CG) 13.33 mL/min; POTASSIUM,K 4.8 mmol/L (3.5-5.1); PROTEIN TOTAL,TP 6.3 g/dL (6.4-8.2)
[2024-10-20 19:14] LABS: CALCIUM 8.2 mg/dL (8.5-10.1); CARBON DIOXIDE,CO2 24.7 mmol/L (21.0-32.0); CREATININE 2.6 mg/dL (0.6-1.0); EST CRCL DRUG DOSING (CG) 13.84 mL/min; POTASSIUM,K 4.6 mmol/L (3.5-5.1)
[2024-10-20] MEDS: cefTRIAXone 1 GM in Sodium Chloride 0.9% 50 ML IV SCH (21:57)
[2024-10-21] MEDS ORDERED: Polyethylene Glycol 3350 Powder 17 GM Packet PO PRN (00:32)
[2024-10-21] MEDS ORDERED: Acetaminophen 325 MG Tab PO PRN (00:32)
[2024-10-21] MEDS ORDERED: Metoclopramide 5 MG Tab PO PRN (00:34)
[2024-10-21] MEDS ORDERED: Albuterol 0.083% 2.5 MG/3 ML Neb Soln NEB PRN (00:34)
[2024-10-21] MEDS ORDERED: Glucagon,Human Recombinant 1 MG Vial IM PRN (00:38)
[2024-10-21] MEDS ORDERED: 50% Dextrose in Water 50 ML Syringe IVPUSH PRN (00:38)
[2024-10-21] MEDS: Insulin Aspart 100 Units/ML 3 ML Pen SUBCUT SCH (01:57)
[2024-10-21] MEDS: Ondansetron 4 MG/2 ML SDV IVPUSH SCH (01:57)
[2024-10-21 06:21] LABS: BASOPHILS ABSOLUTE AUTO 0.06 K/uL (0.00-0.20); BASOPHILS PERCENT AUTO 0.7 % (0.0-1.0); EOSINOPHILS ABSOLUTE AUTO 0.35 K/uL (0.00-0.45); EOSINOPHILS PERCENT AUTO 3.8 % (0.0-6.0); HEMATOCRIT 33.8 % (37.0-47.0); HEMOGLOBIN 11.6 g/dL (12.0-16.0); IMMATURE GRAN ABSOLUTE AUTO 0.02 K/uL (0.00-0.05); IMMATURE GRAN PERCENT AUTO 0.2 % (0.0-0.4); LYMPHOCYTES ABSOLUTE AUTO 3.11 K/uL (1.00-4.80); LYMPHOCYTES PERCENT AUTO 33.9 % (24.0-44.0); MEAN CORPUSCULAR HEMOGLOBIN 30.5 pg (28.0-32.0); MEAN CORPUSCULAR HGB CONC 34.3 g/dL (32.0-36.0); MEAN CORPUSCULAR VOLUME 88.9 fL (83.0-99.0); MEAN PLATELET VOLUME 8.6 fL (9.4-12.3); MONOCYTES ABSOLUTE AUTO 0.83 K/uL (0.00-0.80); MONOCYTES PERCENT AUTO 9.1 % (0.0-8.0); NEUTROPHILS PERCENT AUTO 52.3 % (41.0-71.0); PLATELET COUNT,PLT 297 K/uL (150-400); WHITE BLOOD CELL COUNT,WBC 9.17 K/uL (3.9-11.3)
[2024-10-21 06:42] LABS: CALCIUM 8.2 mg/dL (8.5-10.1); CARBON DIOXIDE,CO2 24.5 mmol/L (21.0-32.0); EST CRCL DRUG DOSING (CG) 17.99 mL/min; POTASSIUM,K 4.7 mmol/L (3.5-5.1)
[2024-10-21] MEDS ORDERED: Ondansetron 4 MG/2 ML SDV IVPUSH PRN (08:13)
[2024-10-21] MEDS: Empagliflozin 10 MG Tab PO SCH (09:23)
[2024-10-21] MEDS: amLODIPine 5 MG Tab PO SCH (09:23)
[2024-10-21] MEDS: Calcium Carbonate 500 MG Tab.Chew PO SCH (09:24)
[2024-10-21] MEDS: Sodium Chloride 0.9% 1,000 ML IV ONE (11:41)
[2024-10-21] MEDS: Sodium Chloride 0.9% 1,000 ML IV SCH (13:34)
[2024-10-21 15:44] LABS: CALCIUM 8.5 mg/dL (8.5-10.1); CARBON DIOXIDE,CO2 24.1 mmol/L (21.0-32.0); CREATININE 1.6 mg/dL (0.6-1.0); EST CRCL DRUG DOSING (CG) 22.49 mL/min; POTASSIUM,K 4.8 mmol/L (3.5-5.1)
[2024-10-21] MEDS: Tiotropium Bromide 4 GM Inhalation Spray (2.5mcg/1 dose; 10 doses) INH SCH (20:53)
[2024-10-21] MEDS: Gabapentin 300 MG Cap PO SCH (21:22)
[2024-10-21] MEDS: Albuterol/Ipratropium 3.0-0.5 MG/3 ML Neb Soln NEB PRN (23:18)
[2024-10-22 06:07] LABS: BASOPHILS ABSOLUTE AUTO 0.06 K/uL (0.00-0.20); BASOPHILS PERCENT AUTO 0.7 % (0.0-1.0); EOSINOPHILS ABSOLUTE AUTO 0.27 K/uL (0.00-0.45); EOSINOPHILS PERCENT AUTO 3.3 % (0.0-6.0); HEMATOCRIT 36.4 % (37.0-47.0); HEMOGLOBIN 12.4 g/dL (12.0-16.0); IMMATURE GRAN ABSOLUTE AUTO 0.02 K/uL (0.00-0.05); IMMATURE GRAN PERCENT AUTO 0.2 % (0.0-0.4); LYMPHOCYTES ABSOLUTE AUTO 2.43 K/uL (1.00-4.80); MEAN CORPUSCULAR HEMOGLOBIN 30.5 pg (28.0-32.0); MEAN CORPUSCULAR HGB CONC 34.1 g/dL (32.0-36.0); MEAN CORPUSCULAR VOLUME 89.4 fL (83.0-99.0); MEAN PLATELET VOLUME 8.1 fL (9.4-12.3); MONOCYTES ABSOLUTE AUTO 0.71 K/uL (0.00-0.80); MONOCYTES PERCENT AUTO 8.8 % (0.0-8.0); NEUTROPHILS ABSOLUTE AUTO 4.61 K/uL (1.80-7.70); PLATELET COUNT,PLT 261 K/uL (150-400); RED BLOOD CELL COUNT 4.07 M/uL (4.10-5.30)
[2024-10-22 06:36] LABS: BILIRUBIN TOTAL 0.3 mg/dL (0.2-1.0); CALCIUM 8.6 mg/dL (8.5-10.1); CARBON DIOXIDE,CO2 23.5 mmol/L (21.0-32.0); CREATININE 1.4 mg/dL (0.6-1.0); EST CRCL DRUG DOSING (CG) 25.71 mL/min; MAGNESIUM 1.9 mg/dL (1.8-2.4); PHOSPHORUS 3.6 mg/dL (2.6-4.7); POTASSIUM,K 3.9 mmol/L (3.5-5.1)
[2024-10-22] MEDS: Phenazopyridine 200 MG Tab PO ONE (10:17)
== END 2024-10-22 11:36 | disposition home or self-care (01) ==
LOC: MW.ED 16:26 → MW.MS 19:49
PROVIDERS: ADMIT Family Medicine; ATTEND Family Medicine
DX: N17.9 Acute kidney failure, unspecified (principal); N30.00 Acute cystitis without hematuria; I12.9 Hypertensive chronic kidney disease with stage 1 through stage 4 chronic kidney disease, or unspecified chronic kidney disease; E11.22 Type 2 diabetes mellitus with diabetic chronic kidney disease; N18.30 Chronic kidney disease, stage 3 unspecified; Z79.899 Other long term (current) drug therapy; Z91.041 Radiographic dye allergy status; Z91.013 Allergy to seafood
CPT/HCPCS: 36415; 74176; 80048; 80053; 81001; 82947; 83735; 84100; 85025; 94664; A9270; J0696; J3490; J7030; 96360; 96361; 99285-25; J7620-GY

== ENCOUNTER 2024-10-30 22:15 | Inpatient (IN) | payer MEDICARE, MEDICAID ==
[2024-10-30] MEDS: HYDROmorphone 0.5 MG/0.5 ML Syringe IVPUSH ONE (22:45)
[2024-10-30] MEDS: Ondansetron 4 MG/2 ML SDV IVPUSH ONE (22:46)
[2024-10-30] MEDS: Sodium Chloride 0.9% 10 ML Syringe FLUSH PRN (22:46)
[2024-10-30] MEDS: hydrALAZINE 20 MG/ML SDV IVPUSH ONE (22:46)
[2024-10-30 22:51] LABS: BASOPHILS ABSOLUTE AUTO 0.05 K/uL (0.00-0.20); BASOPHILS PERCENT AUTO 0.3 % (0.0-1.0); HEMATOCRIT 46.7 % (37.0-47.0); HEMOGLOBIN 16.5 g/dL (12.0-16.0); IMMATURE GRAN ABSOLUTE AUTO 0.03 K/uL (0.00-0.05); IMMATURE GRAN PERCENT AUTO 0.2 % (0.0-0.4); LYMPHOCYTES PERCENT AUTO 4.5 % (24.0-44.0); MEAN CORPUSCULAR HEMOGLOBIN 30.5 pg (28.0-32.0); MEAN CORPUSCULAR HGB CONC 35.3 g/dL (32.0-36.0); MEAN CORPUSCULAR VOLUME 86.3 fL (83.0-99.0); MONOCYTES ABSOLUTE AUTO 0.31 K/uL (0.00-0.80); NEUTROPHILS ABSOLUTE AUTO 14.45 K/uL (1.80-7.70); PLATELET COUNT,PLT 375 K/uL (150-400); RED BLOOD CELL COUNT 5.41 M/uL (4.10-5.30); WHITE BLOOD CELL COUNT,WBC 15.54 K/uL (3.9-11.3)
[2024-10-30 23:02] LABS: ALANINE AMINOTRANSFERASE,ALT 28 IU/L (14-63); ALBUMIN 4.2 g/dL (3.4-5.0); ALKALINE PHOSPHATASE 110 U/L (46-116); ASPARTATE AMNIOTRANSFERASE,AST 31 IU/L (15-37); BILIRUBIN TOTAL 0.5 mg/dL (0.2-1.0); BLOOD UREA NITROGEN,BUN 31 mg/dL (7.0-18.0); CALCIUM 10.2 mg/dL (8.5-10.1); CARBON DIOXIDE,CO2 22.9 mmol/L (21.0-32.0); CHLORIDE,CL 95 mmol/L (98-107); CREATININE 1.9 mg/dL (0.6-1.0); GLUCOSE RANDOM 320 mg/dL (74-106); LIPASE 28 U/L (16-77); PROTEIN TOTAL,TP 8.3 g/dL (6.4-8.2); SODIUM,NA 134 mmol/L (136-145)
[2024-10-30] MEDS: Sodium Chloride 0.9% 1,000 ML IV ONE ×2 (23:04→23:54)
[2024-10-30 23:23] LABS: ESTIMATED GFR 28 mL/min (>60)
[2024-10-31] MEDS ORDERED: 50% Dextrose in Water 50 ML Syringe IVPUSH PRN ×2 (00:19→10:41)
[2024-10-31] MEDS ORDERED: Glucagon,Human Recombinant 1 MG Vial IM PRN ×2 (00:19→10:41)
[2024-10-31 00:26] LABS: APPEARANCE,URINE CLEAR; BILIRUBIN,URINE NEGATIVE (NEGATIVE); COLOR,URINE YELLOW; GLUCOSE,URINE >=1000 mg/dL (NEGATIVE); KETONES,URINE 15 mg/dL (NEGATIVE); LEUKOCYTE ESTERASE,URINE NEGATIVE (NEGATIVE); NITRITE,URINE NEGATIVE (NEGATIVE); OCCULT BLOOD,URINE SMALL (NEGATIVE); PROTEIN,URINE >=300 mg/dL (NEGATIVE); UROBILINOGEN,URINE 0.2 EU/dL (<2.0)
[2024-10-31 00:34] LABS: BACTERIA,URINE RARE (NEGATIVE); EPITHELIAL CELLS,URINE FEW (NONE-FEW); MUCUS,URINE LIGHT (NONE-MOD); WBC,URINE 0-2 (0-5/HPF)
[2024-10-31] MEDS: Insulin Regular, Human 100 Units/ML 10 ML Vial IVPUSH ONE (01:26)
[2024-10-31] MEDS: Piperacillin/Tazobactam 4.5 GM in Sodium Chloride 0.9% 100 ML IV ONE (01:51)
[2024-10-31] MEDS: Morphine 4 MG/ML Syringe IVPUSH ONE (02:28)
[2024-10-31 03:40] LABS: HEMOGLOBIN A1C 7.9 %
[2024-10-31] MEDS ORDERED: Metoclopramide 10 MG/2 ML SDV IV PRN (10:39)
[2024-10-31] MEDS ORDERED: Acetaminophen 325 MG Tab PO PRN (10:39)
[2024-10-31 11:07] LABS: BASOPHILS ABSOLUTE AUTO 0.05 K/uL (0.00-0.20); BASOPHILS PERCENT AUTO 0.3 % (0.0-1.0); EOSINOPHILS ABSOLUTE AUTO 0.01 K/uL (0.00-0.45); EOSINOPHILS PERCENT AUTO 0.1 % (0.0-6.0); HEMATOCRIT 40.4 % (37.0-47.0); IMMATURE GRAN ABSOLUTE AUTO 0.06 K/uL (0.00-0.05); IMMATURE GRAN PERCENT AUTO 0.4 % (0.0-0.4); LYMPHOCYTES ABSOLUTE AUTO 1.36 K/uL (1.00-4.80); MEAN CORPUSCULAR HEMOGLOBIN 30.9 pg (28.0-32.0); MEAN CORPUSCULAR HGB CONC 34.7 g/dL (32.0-36.0); MEAN CORPUSCULAR VOLUME 89.2 fL (83.0-99.0); MEAN PLATELET VOLUME 7.9 fL (9.4-12.3); MONOCYTES ABSOLUTE AUTO 1.12 K/uL (0.00-0.80); MONOCYTES PERCENT AUTO 6.6 % (0.0-8.0); NEUTROPHILS ABSOLUTE AUTO 14.34 K/uL (1.80-7.70); NEUTROPHILS PERCENT AUTO 84.6 % (41.0-71.0); PLATELET COUNT,PLT 330 K/uL (150-400); RED BLOOD CELL COUNT 4.53 M/uL (4.10-5.30); WHITE BLOOD CELL COUNT,WBC 16.94 K/uL (3.9-11.3)
[2024-10-31 11:23] LABS: BLOOD UREA NITROGEN,BUN 25 mg/dL (7.0-18.0); CALCIUM 9.1 mg/dL (8.5-10.1); CARBON DIOXIDE,CO2 25.4 mmol/L (21.0-32.0); CHLORIDE,CL 98 mmol/L (98-107); CREATININE 1.7 mg/dL (0.6-1.0); GLUCOSE RANDOM 191 mg/dL (74-106); POTASSIUM,K 4.3 mmol/L (3.5-5.1); SODIUM,NA 134 mmol/L (136-145)
[2024-10-31 11:24] LABS: ESTIMATED GFR 31 mL/min (>60)
[2024-10-31 11:47] LABS: LACTIC ACID 1.2 mmol/L (0.4-2.0)
[2024-10-31] MEDS: Sodium Chloride 0.9% 1,000 ML IV SCH (12:09)
[2024-10-31] MEDS: Insulin Aspart 100 Units/ML 3 ML Pen SUBCUT SCH (12:11)
[2024-10-31] MEDS: amLODIPine 5 MG Tab PO SCH (12:11)
[2024-10-31] MEDS: Cefepime 1 GM in Sodium Chloride 0.9% 50 ML IV SCH (13:53)
[2024-10-31] MEDS: Insulin Glargine,Hum.Rec.Anlog 100 UNIT/ML 3 ML Pen SUBCUT SCH (22:24)
[2024-11-01 05:41] LABS: BASOPHILS ABSOLUTE AUTO 0.06 K/uL (0.00-0.20); BASOPHILS PERCENT AUTO 0.6 % (0.0-1.0); EOSINOPHILS ABSOLUTE AUTO 0.13 K/uL (0.00-0.45); EOSINOPHILS PERCENT AUTO 1.4 % (0.0-6.0); HEMATOCRIT 38.1 % (37.0-47.0); HEMOGLOBIN 12.7 g/dL (12.0-16.0); IMMATURE GRAN ABSOLUTE AUTO 0.02 K/uL (0.00-0.05); IMMATURE GRAN PERCENT AUTO 0.2 % (0.0-0.4); LYMPHOCYTES ABSOLUTE AUTO 2.36 K/uL (1.00-4.80); LYMPHOCYTES PERCENT AUTO 25.5 % (24.0-44.0); MEAN CORPUSCULAR HEMOGLOBIN 30.2 pg (28.0-32.0); MEAN CORPUSCULAR HGB CONC 33.3 g/dL (32.0-36.0); MEAN CORPUSCULAR VOLUME 90.5 fL (83.0-99.0); MEAN PLATELET VOLUME 8.2 fL (9.4-12.3); MONOCYTES ABSOLUTE AUTO 0.73 K/uL (0.00-0.80); MONOCYTES PERCENT AUTO 7.9 % (0.0-8.0); NEUTROPHILS ABSOLUTE AUTO 5.94 K/uL (1.80-7.70); NEUTROPHILS PERCENT AUTO 64.4 % (41.0-71.0); PLATELET COUNT,PLT 281 K/uL (150-400); RED BLOOD CELL COUNT 4.21 M/uL (4.10-5.30); WHITE BLOOD CELL COUNT,WBC 9.24 K/uL (3.9-11.3)
[2024-11-01 06:12] LABS: CALCIUM 8.5 mg/dL (8.5-10.1); CARBON DIOXIDE,CO2 24.2 mmol/L (21.0-32.0); CREATININE 1.5 mg/dL (0.6-1.0); EST CRCL DRUG DOSING (CG) 28.84 mL/min; POTASSIUM,K 3.6 mmol/L (3.5-5.1)
[2024-11-01] MEDS: Ondansetron 4 MG/2 ML SDV IVPUSH PRN (08:39)
[2024-11-01] MEDS: Metoclopramide 10 MG/2 ML SDV IV PRN (09:52)
[2024-11-01] MEDS: Lisinopril 10 MG Tab PO SCH (10:24)
[2024-11-01] MEDS: Gabapentin 300 MG Cap PO SCH ×2 (10:24→20:38)
[2024-11-01] MEDS: Empagliflozin 10 MG Tab PO SCH (10:24)
[2024-11-01] MEDS: Lisinopril 10 MG Tab PO ONE (14:32)
[2024-11-01] MEDS: Melatonin 3 MG Tab PO PRN (23:08)
[2024-11-02 05:53] LABS: BASOPHILS ABSOLUTE AUTO 0.04 K/uL (0.00-0.20); BASOPHILS PERCENT AUTO 0.4 % (0.0-1.0); EOSINOPHILS ABSOLUTE AUTO 0.13 K/uL (0.00-0.45); EOSINOPHILS PERCENT AUTO 1.4 % (0.0-6.0); HEMATOCRIT 35.9 % (37.0-47.0); HEMOGLOBIN 12.2 g/dL (12.0-16.0); IMMATURE GRAN ABSOLUTE AUTO 0.02 K/uL (0.00-0.05); IMMATURE GRAN PERCENT AUTO 0.2 % (0.0-0.4); LYMPHOCYTES ABSOLUTE AUTO 2.92 K/uL (1.00-4.80); LYMPHOCYTES PERCENT AUTO 32.6 % (24.0-44.0); MEAN CORPUSCULAR HEMOGLOBIN 30.3 pg (28.0-32.0); MEAN CORPUSCULAR VOLUME 89.1 fL (83.0-99.0); MEAN PLATELET VOLUME 8.2 fL (9.4-12.3); MONOCYTES ABSOLUTE AUTO 0.83 K/uL (0.00-0.80); MONOCYTES PERCENT AUTO 9.3 % (0.0-8.0); NEUTROPHILS ABSOLUTE AUTO 5.03 K/uL (1.80-7.70); NEUTROPHILS PERCENT AUTO 56.1 % (41.0-71.0); PLATELET COUNT,PLT 290 K/uL (150-400); RED BLOOD CELL COUNT 4.03 M/uL (4.10-5.30); WHITE BLOOD CELL COUNT,WBC 8.97 K/uL (3.9-11.3)
[2024-11-02 06:21] LABS: CALCIUM 8.8 mg/dL (8.5-10.1); CREATININE 1.9 mg/dL (0.6-1.0); EST CRCL DRUG DOSING (CG) 22.77 mL/min; POTASSIUM,K 3.3 mmol/L (3.5-5.1)
[2024-11-02] MEDS: Albuterol/Ipratropium 3.0-0.5 MG/3 ML Neb Soln NEB SCH (09:48)
[2024-11-02] MEDS: Gabapentin 300 MG Cap PO SCH (09:55)
[2024-11-02] MEDS: Lisinopril 10 MG Tab PO SCH (09:58)
[2024-11-02] MEDS ORDERED: tiZANidine 4 MG Tab PO PRN (10:09)
[2024-11-02] MEDS: BUPROPION 200 MG PO SCH (14:19)
[2024-11-02] MEDS: VARENICLINE TARTRATE 1 MG PO SCH (23:11)
[2024-11-03 05:54] LABS: BASOPHILS ABSOLUTE AUTO 0.07 K/uL (0.00-0.20); BASOPHILS PERCENT AUTO 0.8 % (0.0-1.0); EOSINOPHILS ABSOLUTE AUTO 0.22 K/uL (0.00-0.45); EOSINOPHILS PERCENT AUTO 2.4 % (0.0-6.0); HEMATOCRIT 34.5 % (37.0-47.0); HEMOGLOBIN 11.9 g/dL (12.0-16.0); IMMATURE GRAN ABSOLUTE AUTO 0.03 K/uL (0.00-0.05); IMMATURE GRAN PERCENT AUTO 0.3 % (0.0-0.4); LYMPHOCYTES ABSOLUTE AUTO 2.29 K/uL (1.00-4.80); LYMPHOCYTES PERCENT AUTO 25.4 % (24.0-44.0); MEAN CORPUSCULAR HEMOGLOBIN 30.4 pg (28.0-32.0); MEAN CORPUSCULAR HGB CONC 34.5 g/dL (32.0-36.0); MEAN CORPUSCULAR VOLUME 88.2 fL (83.0-99.0); MEAN PLATELET VOLUME 8.2 fL (9.4-12.3); MONOCYTES ABSOLUTE AUTO 0.91 K/uL (0.00-0.80); MONOCYTES PERCENT AUTO 10.1 % (0.0-8.0); NEUTROPHILS ABSOLUTE AUTO 5.48 K/uL (1.80-7.70); PLATELET COUNT,PLT 265 K/uL (150-400); RED BLOOD CELL COUNT 3.91 M/uL (4.10-5.30)
[2024-11-03 06:11] LABS: CARBON DIOXIDE,CO2 23.1 mmol/L (21.0-32.0); EST CRCL DRUG DOSING (CG) 21.63 mL/min; POTASSIUM,K 3.9 mmol/L (3.5-5.1)
[2024-11-03] MEDS: Escitalopram 10 MG Tab PO SCH (08:34)
[2024-11-03] MEDS: BUPROPION 200 MG PO SCH (08:37)
[2024-11-03] MEDS: VARENICLINE TARTRATE 1 MG PO SCH (08:37)
[2024-11-03] MEDS: Lisinopril 10 MG Tab PO SCH (08:51)
[2024-11-03] MEDS: Tiotropium Bromide 4 GM Inhalation Spray (2.5mcg/1 dose; 10 doses) INH SCH (09:19)
[2024-11-03] MEDS: Levofloxacin 750 MG Tab PO SCH (10:14)
== END 2024-11-03 12:57 | disposition home or self-care (01) | DRG 683 ==
LOC: MW.ED 22:15 → MW.MS 10-31 09:41
PROVIDERS: ADMIT Family Medicine; ATTEND Family Medicine
DX: N17.9 Acute kidney failure, unspecified (principal); Q61.3 Polycystic kidney, unspecified; N12 Tubulo-interstitial nephritis, not specified as acute or chronic; I10 Essential (primary) hypertension; R74.02 Elevation of levels of lactic acid dehydrogenase [LDH]; E78.00 Pure hypercholesterolemia, unspecified; J44.89 Other specified chronic obstructive pulmonary disease; I12.9 Hypertensive chronic kidney disease with stage 1 through stage 4 chronic kidney disease, or unspecified chronic kidney disease; E11.22 Type 2 diabetes mellitus with diabetic chronic kidney disease; J44.9 Chronic obstructive pulmonary disease, unspecified; E86.0 Dehydration; H54.7 Unspecified visual loss; H26.9 Unspecified cataract; G47.30 Sleep apnea, unspecified; M19.90 Unspecified osteoarthritis, unspecified site; G89.29 Other chronic pain; E11.42 Type 2 diabetes mellitus with diabetic polyneuropathy; F32.A Depression, unspecified; F41.9 Anxiety disorder, unspecified; D63.1 Anemia in chronic kidney disease; G43.909 Migraine, unspecified, not intractable, without status migrainosus; N18.2 Chronic kidney disease, stage 2 (mild); E11.649 Type 2 diabetes mellitus with hypoglycemia without coma; E11.43 Type 2 diabetes mellitus with diabetic autonomic (poly)neuropathy; K31.84 Gastroparesis; E78.2 Mixed hyperlipidemia; E11.65 Type 2 diabetes mellitus with hyperglycemia; E66.9 Obesity, unspecified; Z68.33 Body mass index [BMI] 33.0-33.9, adult; Z88.8 Allergy status to other drugs, medicaments and biological substances; Z91.013 Allergy to seafood; Z79.51 Long term (current) use of inhaled steroids; Z79.899 Other long term (current) drug therapy; Z79.02 Long term (current) use of antithrombotics/antiplatelets; Z86.711 Personal history of pulmonary embolism; Z87.442 Personal history of urinary calculi; Z98.49 Cataract extraction status, unspecified eye; Z98.891 History of uterine scar from previous surgery; Z98.890 Other specified postprocedural states; Z71.6 Tobacco abuse counseling
CPT/HCPCS: 36415 ×2; 74019; 74176; 80053; 81001; 83036; 83605 ×3; 83690; 85025; 87086; 93005 ×2; 96361 ×2; 96365; 96375 ×2; 99285; J0360; J2270; J2405; J2543; J3490; J7030 ×2; 80048; 82947; 83735; 93010; 94640; 94664; 99222; 99232; 99238; A9270-GY; J0692; J1815-GY; J2765; J7620-GY

== ENCOUNTER 2025-01-06 19:18 | Observation (INO) | payer OTHER, MEDICAID ==
[2025-01-06 19:41] LABS: BASOPHILS ABSOLUTE AUTO 0.08 K/uL (0.00-0.20); BASOPHILS PERCENT AUTO 0.6 % (0.0-1.0); EOSINOPHILS ABSOLUTE AUTO 0.05 K/uL (0.00-0.45); EOSINOPHILS PERCENT AUTO 0.4 % (0.0-6.0); HEMATOCRIT 44.2 % (37.0-47.0); HEMOGLOBIN 15.7 g/dL (12.0-16.0); IMMATURE GRAN ABSOLUTE AUTO 0.04 K/uL (0.00-0.05); IMMATURE GRAN PERCENT AUTO 0.3 % (0.0-0.4); LYMPHOCYTES ABSOLUTE AUTO 1.75 K/uL (1.00-4.80); LYMPHOCYTES PERCENT AUTO 12.6 % (24.0-44.0); MEAN CORPUSCULAR HEMOGLOBIN 30.9 pg (28.0-32.0); MEAN CORPUSCULAR HGB CONC 35.5 g/dL (32.0-36.0); MONOCYTES ABSOLUTE AUTO 0.81 K/uL (0.00-0.80); MONOCYTES PERCENT AUTO 5.8 % (0.0-8.0); NEUTROPHILS ABSOLUTE AUTO 11.17 K/uL (1.80-7.70); NEUTROPHILS PERCENT AUTO 80.3 % (41.0-71.0); PLATELET COUNT,PLT 351 K/uL (150-400); RED BLOOD CELL COUNT 5.08 M/uL (4.10-5.30)
[2025-01-06 19:47] LABS: PH,VENOUS 7.47 (7.32-7.43)
[2025-01-06] MEDS: Famotidine 20 MG/2 ML SDV IVPUSH ONE (19:48)
[2025-01-06] MEDS: Ondansetron 4 MG/2 ML SDV IVPUSH ONE (19:48)
[2025-01-06] MEDS: cefTRIAXone 2 GM in Sodium Chloride 0.9% 50 ML IV ONE (19:49)
[2025-01-06] MEDS: Sodium Chloride 0.9% 1,000 ML IV ONE ×2 (19:49)
[2025-01-06 20:12] LABS: A/G RATIO 1.2 (0.9-1.6); ALBUMIN 4.1 g/dL (3.4-5.0); BILIRUBIN TOTAL 0.4 mg/dL (0.2-1.0); CALCIUM 9.3 mg/dL (8.5-10.1); CARBON DIOXIDE,CO2 18.5 mmol/L (21.0-32.0); CREATININE 1.8 mg/dL (0.6-1.0); EST CRCL DRUG DOSING (CG) 19.7 mL/min; POTASSIUM,K 3.9 mmol/L (3.5-5.1); PROTEIN TOTAL,TP 7.6 g/dL (6.4-8.2)
[2025-01-06 20:20] LABS: APPEARANCE,URINE CLEAR; BILIRUBIN,URINE NEGATIVE (NEGATIVE); COLOR,URINE YELLOW; GLUCOSE,URINE >=1000 mg/dL (NEGATIVE); KETONES,URINE 15 mg/dL (NEGATIVE); LEUKOCYTE ESTERASE,URINE NEGATIVE (NEGATIVE); NITRITE,URINE NEGATIVE (NEGATIVE); OCCULT BLOOD,URINE SMALL (NEGATIVE); PH,URINE 6.5 (5.0-8.0); PROTEIN,URINE >=300 mg/dL (NEGATIVE); UROBILINOGEN,URINE 0.2 EU/dL (<2.0)
[2025-01-06 20:26] LABS: LACTIC ACID 2.4 mmol/L (0.4-2.0)
[2025-01-06 20:31] LABS: EPITHELIAL CELLS,URINE FEW (NONE-FEW); RBC,URINE 0-5 (0-2/HPF); WBC,URINE 0-5 (0-5/HPF)
[2025-01-06 20:32] LABS: BACTERIA,URINE RARE (NEGATIVE)
[2025-01-06 20:44] LABS: CORONAVIRUS COVID-19 NAA NEGATIVE (NEGATIVE); INFLUENZA A NAA NEGATIVE (NEGATIVE); INFLUENZA B NAA NEGATIVE (NEGATIVE); RESPIRATORY SYNCYTIAL VIR NAA NEGATIVE (NEGATIVE)
[2025-01-06] MEDS: Albuterol/Ipratropium 3.0-0.5 MG/3 ML Neb Soln NEB ONE (21:02)
[2025-01-06] MEDS ORDERED: Glucagon,Human Recombinant 1 MG Vial IM PRN ×2 (21:25→23:50)
[2025-01-06] MEDS ORDERED: 50% Dextrose in Water 50 ML Syringe IVPUSH PRN ×2 (21:25→23:50)
[2025-01-06] MEDS: Insulin Regular, Human 100 Units/ML 10 ML Vial IVPUSH ONE (21:29)
[2025-01-06] MEDS: diphenhydrAMINE 50 MG/ML SDV IVPUSH ONE (21:44)
[2025-01-06] MEDS: Metoclopramide 10 MG/2 ML SDV IVPUSH ONE (21:44)
[2025-01-06] MEDS: Morphine 4 MG/ML Syringe IVPUSH ONE (21:44)
[2025-01-06] MEDS ORDERED: Polyethylene Glycol 3350 Powder 17 GM Packet PO PRN (23:45)
[2025-01-06] MEDS ORDERED: Melatonin 3 MG Tab PO PRN (23:45)
[2025-01-06] MEDS ORDERED: Metoclopramide 10 MG/2 ML SDV IV PRN (23:45)
[2025-01-06] MEDS ORDERED: Acetaminophen 650 MG Supp RECTAL PRN (23:45)
[2025-01-07] MEDS: Ondansetron 4 MG/2 ML SDV IVPUSH SCH (00:35)
[2025-01-07] MEDS: Heparin Sodium 5,000 Units/ML Vial SUBCUT SCH (00:37)
[2025-01-07] MEDS: Pantoprazole 40 MG in Sodium Chloride 0.9% 10 ML IVPUSH SCH (00:37)
[2025-01-07] MEDS: Sodium Chloride 0.9% 1,000 ML IV SCH (00:38)
[2025-01-07] MEDS: Acetaminophen 325 MG Tab PO PRN (00:42)
[2025-01-07] MEDS: cefTRIAXone 1 GM in Sodium Chloride 0.9% 50 ML IV SCH ×2 (00:54→08:29)
[2025-01-07] MEDS ORDERED: Naloxone 0.4 MG/ML SDV IVPUSH PRN (01:01)
[2025-01-07] MEDS: Escitalopram 10 MG Tab PO SCH (01:45)
[2025-01-07] MEDS: Lisinopril 10 MG Tab PO SCH (01:45)
[2025-01-07] MEDS: Empagliflozin 10 MG Tab PO SCH (01:48)
[2025-01-07] MEDS: Morphine 2 MG/ML SYRINGE IVPUSH PRN (01:48)
[2025-01-07] MEDS: amLODIPine 5 MG Tab PO SCH (01:48)
[2025-01-07] MEDS: Insulin Aspart 100 Units/ML 3 ML Pen SUBCUT SCH (02:05)
[2025-01-07 05:18] LABS: BASOPHILS ABSOLUTE AUTO 0.05 K/uL (0.00-0.20); BASOPHILS PERCENT AUTO 0.3 % (0.0-1.0); EOSINOPHILS ABSOLUTE AUTO 0.01 K/uL (0.00-0.45); EOSINOPHILS PERCENT AUTO 0.1 % (0.0-6.0); HEMATOCRIT 46.6 % (37.0-47.0); HEMOGLOBIN 16.4 g/dL (12.0-16.0); IMMATURE GRAN ABSOLUTE AUTO 0.09 K/uL (0.00-0.05); IMMATURE GRAN PERCENT AUTO 0.5 % (0.0-0.4); LYMPHOCYTES ABSOLUTE AUTO 0.68 K/uL (1.00-4.80); LYMPHOCYTES PERCENT AUTO 3.8 % (24.0-44.0); MEAN CORPUSCULAR HEMOGLOBIN 30.7 pg (28.0-32.0); MEAN CORPUSCULAR HGB CONC 35.2 g/dL (32.0-36.0); MEAN CORPUSCULAR VOLUME 87.3 fL (83.0-99.0); MONOCYTES ABSOLUTE AUTO 0.44 K/uL (0.00-0.80); MONOCYTES PERCENT AUTO 2.4 % (0.0-8.0); NEUTROPHILS ABSOLUTE AUTO 16.73 K/uL (1.80-7.70); NEUTROPHILS PERCENT AUTO 92.9 % (41.0-71.0); PLATELET COUNT,PLT 418 K/uL (150-400); RED BLOOD CELL COUNT 5.34 M/uL (4.10-5.30)
[2025-01-07 05:27] LABS: CALCIUM 8.9 mg/dL (8.5-10.1); CARBON DIOXIDE,CO2 17.8 mmol/L (21.0-32.0); CREATININE 1.7 mg/dL (0.6-1.0); EST CRCL DRUG DOSING (CG) 20.85 mL/min; MAGNESIUM 1.7 mg/dL (1.8-2.4); POTASSIUM,K 3.8 mmol/L (3.5-5.1)
[2025-01-07 05:36] LABS: LACTIC ACID 2.8 mmol/L (0.4-2.0)
[2025-01-07] MEDS ORDERED: Glucagon,Human Recombinant 1 MG Vial IM PRN ×3 (07:10→16:31)
[2025-01-07] MEDS ORDERED: 50% Dextrose in Water 50 ML Syringe IVPUSH PRN ×3 (07:10→16:31)
[2025-01-07] MEDS: Insulin Regular in 0.9 % NACL 100 ML IV SCH (07:51)
[2025-01-07] MEDS: D5 1/2 NS w/ 20 mEq/L KCl 1,000 ML IV SCH (08:11)
[2025-01-07 10:24] LABS: CALCIUM 8.1 mg/dL (8.5-10.1); CARBON DIOXIDE,CO2 21.1 mmol/L (21.0-32.0); EST CRCL DRUG DOSING (CG) 17.73 mL/min
[2025-01-07 10:28] LABS: POTASSIUM,K 4.2 mmol/L (3.5-5.1)
[2025-01-07] MEDS: Sodium Chloride 0.9% 500 ML IV ONE (11:04)
[2025-01-07] MEDS: Magnesium Sulf/Wat 2 GM/50 mL 2 GM in Premix Bag 1 BAG IV ONE (11:51)
[2025-01-07 14:31] LABS: CARBON DIOXIDE,CO2 21.8 mmol/L (21.0-32.0); EST CRCL DRUG DOSING (CG) 17.73 mL/min; POTASSIUM,K 4.2 mmol/L (3.5-5.1)
[2025-01-07] MEDS: Insulin Glargine,Human Rec. Analog 100 Units/ML 3 ML Pen SUBCUT ONE (15:14)
[2025-01-07] MEDS: Dextrose 5%-0.45% NaCl 1,000 ML IV SCH (15:20)
[2025-01-07 18:33] LABS: CALCIUM 7.8 mg/dL (8.5-10.1); CARBON DIOXIDE,CO2 21.2 mmol/L (21.0-32.0); CREATININE 2.1 mg/dL (0.6-1.0); EST CRCL DRUG DOSING (CG) 16.88 mL/min; POTASSIUM,K 3.9 mmol/L (3.5-5.1)
[2025-01-07] MEDS: Gabapentin 300 MG Cap PO SCH (20:16)
[2025-01-07] MEDS: Albuterol/Ipratropium 3.0-0.5 MG/3 ML Neb Soln NEB PRN (20:22)
[2025-01-07] MEDS ORDERED: BUPROPION HCL 200 MG PO SCH (21:00)
[2025-01-07 22:24] LABS: HEMOGLOBIN A1C 7.2 %
[2025-01-07 22:26] LABS: CALCIUM 7.7 mg/dL (8.5-10.1); CARBON DIOXIDE,CO2 22.1 mmol/L (21.0-32.0); CREATININE 2.1 mg/dL (0.6-1.0); EST CRCL DRUG DOSING (CG) 16.88 mL/min; POTASSIUM,K 3.7 mmol/L (3.5-5.1)
[2025-01-08 05:44] LABS: BASOPHILS ABSOLUTE AUTO 0.06 K/uL (0.00-0.20); BASOPHILS PERCENT AUTO 0.5 % (0.0-1.0); EOSINOPHILS ABSOLUTE AUTO 0.06 K/uL (0.00-0.45); EOSINOPHILS PERCENT AUTO 0.5 % (0.0-6.0); HEMATOCRIT 35.5 % (37.0-47.0); HEMOGLOBIN 11.9 g/dL (12.0-16.0); IMMATURE GRAN ABSOLUTE AUTO 0.04 K/uL (0.00-0.05); IMMATURE GRAN PERCENT AUTO 0.3 % (0.0-0.4); LYMPHOCYTES ABSOLUTE AUTO 3.39 K/uL (1.00-4.80); LYMPHOCYTES PERCENT AUTO 29.6 % (24.0-44.0); MEAN CORPUSCULAR HEMOGLOBIN 30.4 pg (28.0-32.0); MEAN CORPUSCULAR HGB CONC 33.5 g/dL (32.0-36.0); MEAN CORPUSCULAR VOLUME 90.8 fL (83.0-99.0); MEAN PLATELET VOLUME 8.2 fL (9.4-12.3); MONOCYTES PERCENT AUTO 8.7 % (0.0-8.0); NEUTROPHILS ABSOLUTE AUTO 6.89 K/uL (1.80-7.70); NEUTROPHILS PERCENT AUTO 60.4 % (41.0-71.0); PLATELET COUNT,PLT 265 K/uL (150-400); RED BLOOD CELL COUNT 3.91 M/uL (4.10-5.30); WHITE BLOOD CELL COUNT,WBC 11.44 K/uL (3.9-11.3)
[2025-01-08 06:17] LABS: CREATININE 2.1 mg/dL (0.6-1.0); EST CRCL DRUG DOSING (CG) 16.88 mL/min; MAGNESIUM 2.2 mg/dL (1.8-2.4); POTASSIUM,K 3.5 mmol/L (3.5-5.1)
[2025-01-08] MEDS ORDERED: Ondansetron 4 MG Tab.DIS PO PRN (07:12)
[2025-01-08] MEDS: Sodium Chloride 0.9% 1,000 ML IV SCH (11:00)
[2025-01-08] MEDS ORDERED: Insulin Glargine,Human Rec. Analog 100 Units/ML 3 ML Pen SUBCUT SCH (21:00)
== END 2025-01-08 15:20 | disposition home or self-care (01) ==
LOC: MW.ED 19:18 → MW.MS 23:39 → MW.ICU 01-07 07:36 → OBSVTOIN 01-07 10:55 → INTOOBSV 01-07 10:55 → UNDODISIN 01-08 15:20
PROVIDERS: ADMIT Family Medicine; ATTEND Family Medicine
DX: E11.10 Type 2 diabetes mellitus with ketoacidosis without coma (principal); E11.649 Type 2 diabetes mellitus with hypoglycemia without coma; N17.9 Acute kidney failure, unspecified; E11.22 Type 2 diabetes mellitus with diabetic chronic kidney disease; I12.9 Hypertensive chronic kidney disease with stage 1 through stage 4 chronic kidney disease, or unspecified chronic kidney disease; N18.9 Chronic kidney disease, unspecified; J44.9 Chronic obstructive pulmonary disease, unspecified; E11.43 Type 2 diabetes mellitus with diabetic autonomic (poly)neuropathy; K31.84 Gastroparesis; F32.A Depression, unspecified; E78.00 Pure hypercholesterolemia, unspecified; Z79.4 Long term (current) use of insulin; Z79.899 Other long term (current) drug therapy; Z91.013 Allergy to seafood; Z91.041 Radiographic dye allergy status
CPT/HCPCS: 0241U; 36415; 71045; 71250; 74176; 80048; 80053; 81001; 82009; 82803; 82947; 83036; 83605; 83690; 83735; 83880; 84484; 85025; 87040; 93005; 96361; 96365; 96375; 99285; A9270; J0696; J1200; J1644; J1815; J2270; J2405; J2470; J2765; J3475; J3490; J7030; J7040; J7620; J7799; 36410; 93010; 96366; 96367; 96372; 96376; G0378; J3480